=== PATIENT | male | born 1970 | race Caucasian/White ===

== ENCOUNTER 2024-01-20 00:17 | Emergency (ER) | payer OTHER, SELFPAY ==
--- NOTE | ~2024-01-20 | XR_ITS ---
EXAMINATION: XR TIBIA AND FIBULA, LEFT CLINICAL INFORMATION: Fall. Pain. COMPARISON: None available. TECHNIQUE: AP and lateral views of the left tibia and fibula were obtained. FINDINGS: The bone mineralization is normal. There is no fracture. There is lateral soft tissue swelling. XR/XR tibia fibula LT 2V IMPRESSION: Lateral soft tissue swelling. No fracture. Electronically signed by: Iftikhar Laguerre MD 01/20/2024 01:05 AM EDT
--- NOTE | ~2024-01-20 | CT_ITS ---
EXAMINATION: CT HEAD WITHOUT CONTRAST CT CERVICAL SPINE WITHOUT CONTRAST CLINICAL INFORMATION: Trauma. Pain. COMPARISON: None available. TECHNIQUE: Contiguous axial imaging was performed through the head and cervical spine without intravenous administration of contrast. Sagittal and coronal reformatted images also obtained. This CT examination was performed using dose optimization techniques as appropriate, variously including the following: *Automated exposure control *Adjustment of mA and/or kV according to patient size (this includes techniques or standardized protocols for targeted exams where dose is matched to indication/reason for exam; i.e. extremities or head) *Use of iterative reconstruction technique DLP: 1304 mGy-cm FINDINGS: The lateral, third and fourth ventricles are normally outlined. The cortical sulci and basal cisterns are normally outlined well. There is no acute territorial defect, hemorrhage or midline shift. The extra-axial spaces are unremarkable. Calvarium/scalp: Intact. Maxillofacial sinuses and mastoids: Clear as visualized. Cervical spine: There is straightening of the expected cervical spine curvature. There is mild diffuse cervical disc degenerative change with multilevel loss of disc space, endplate change and mild osteophyte formation greatest at C6-7 associated with mild diffuse facet osteoarthritic hypertrophic change with mild multilevel spinal canal and neuroforaminal narrowing moderate at C6-7 to the right. There is no fracture. The soft tissues are unremarkable. The visualized upper lung huerta are clear. CT/CT head/brain wo IV con IMPRESSION: HEAD: No acute intracranial abnormality. CERVICAL SPINE: 1. Straightening of expected cervical spine curvature. No acute fracture or dislocation. 2. Mild diffuse cervical disc degenerative change with mild multilevel spinal canal and neuroforaminal narrowing greatest at C6-7 to the right. Electronically signed by: Iftikhar Laguerre MD 01/20/2024 03:31 AM EDT
--- NOTE | ~2024-01-20 | CT_ITS ---
EXAMINATION: CT CHEST, ABDOMEN AND PELVIS WITH CONTRAST CLINICAL INFORMATION: Trauma. Pain. COMPARISON: None available. TECHNIQUE: Multidetector volumetric CT imaging of the chest, abdomen and pelvis was obtained after the administration of 80 mL of Omnipaque 350 intravenous contrast without immediate adverse reactions. Axial MIP volume rendering provided. Sagittal and coronal reformatted images were obtained. This CT examination was performed using dose optimization techniques as appropriate, variously including the following: *Automated exposure control *Adjustment of mA and/or kV according to patient size (this includes techniques or standardized protocols for targeted exams where dose is matched to indication/reason for exam; i.e. extremities or head) *Use of iterative reconstruction technique DLP: 1366 mGy-cm FINDINGS: COMPUTER NETWORK SPECIALIST: Unremarkable. LUNGS: There is minimal scarring and/or subsegmental atelectasis at the lung bases. The lungs are otherwise clear with no evidence of inflammation or nodules. MEDIASTINUM: The mediastinum is normal. PLEURA: There is no pleural effusion. No pleural mass or thickening. AXILLA: No lymphadenopathy. LIVER, GALLBLADDER, AND BILIARY TREE: The liver is normal in size, shape, and attenuation. No focal hepatic lesion or biliary ductal dilatation is present. The gallbladder is unremarkable with no evidence of radiopaque gallstones, gallbladder wall thickening, or obvious pericholecystic inflammatory changes. PANCREAS: Unremarkable. SPLEEN: Unremarkable. ADRENAL GLANDS: Unremarkable. KIDNEYS AND URETERS: The kidneys are normal in size, shape, and attenuation. There is no hydronephrosis. BLADDER: Unremarkable. GASTROINTESTINAL TRACT: The small and large bowel are unremarkable. The appendix is visualized and is normal in appearance. ABDOMINAL WALL: No significant hernia is appreciated. LYMPH NODES: Normal. VASCULAR: Unremarkable. PELVIC VISCERA: Unremarkable. OSSEOUS STRUCTURES: Unremarkable. CT/CT chest w IV con IMPRESSION: No evidence of acute traumatic injury within the chest, abdomen, or pelvis.Fleischner guidelines were followed. Electronically signed by: Iftikhar Laguerre MD 01/20/2024 04:00 AM EDT
--- NOTE | ~2024-01-20 | CT_ITS ---
EXAMINATION: CT CHEST, ABDOMEN AND PELVIS WITH CONTRAST CLINICAL INFORMATION: Trauma. Pain. COMPARISON: None available. TECHNIQUE: Multidetector volumetric CT imaging of the chest, abdomen and pelvis was obtained after the administration of 80 mL of Omnipaque 350 intravenous contrast without immediate adverse reactions. Axial MIP volume rendering provided. Sagittal and coronal reformatted images were obtained. This CT examination was performed using dose optimization techniques as appropriate, variously including the following: *Automated exposure control *Adjustment of mA and/or kV according to patient size (this includes techniques or standardized protocols for targeted exams where dose is matched to indication/reason for exam; i.e. extremities or head) *Use of iterative reconstruction technique DLP: 1366 mGy-cm FINDINGS: CEILING INSTALLER: Unremarkable. LUNGS: There is minimal scarring and/or subsegmental atelectasis at the lung bases. The lungs are otherwise clear with no evidence of inflammation or nodules. MEDIASTINUM: The mediastinum is normal. PLEURA: There is no pleural effusion. No pleural mass or thickening. AXILLA: No lymphadenopathy. LIVER, GALLBLADDER, AND BILIARY TREE: The liver is normal in size, shape, and attenuation. No focal hepatic lesion or biliary ductal dilatation is present. The gallbladder is unremarkable with no evidence of radiopaque gallstones, gallbladder wall thickening, or obvious pericholecystic inflammatory changes. PANCREAS: Unremarkable. SPLEEN: Unremarkable. ADRENAL GLANDS: Unremarkable. KIDNEYS AND URETERS: The kidneys are normal in size, shape, and attenuation. There is no hydronephrosis. BLADDER: Unremarkable. GASTROINTESTINAL TRACT: The small and large bowel are unremarkable. The appendix is visualized and is normal in appearance. ABDOMINAL WALL: No significant hernia is appreciated. LYMPH NODES: Normal. VASCULAR: Unremarkable. PELVIC VISCERA: Unremarkable. OSSEOUS STRUCTURES: Unremarkable. CT/CT abdomen pelvis w IV con IMPRESSION: No evidence of acute traumatic injury within the chest, abdomen, or pelvis.Fleischner guidelines were followed. Electronically signed by: Iftikhar Laguerre MD 01/20/2024 04:00 AM EDT
--- NOTE | ~2024-01-20 | XR_ITS ---
EXAMINATION: XR FEMUR, LEFT CLINICAL INFORMATION: Fall. Pain. COMPARISON: None available. TECHNIQUE: AP and lateral views of the left femur were obtained. FINDINGS: The bones and soft tissues are normal. No fracture. No osseous lesions. XR/XR femur LT 2V IMPRESSION: No significant abnormality identified. Electronically signed by: Iftikhar Laguerre MD 01/20/2024 01:12 AM EDT
--- NOTE | ~2024-01-20 | XR_ITS ---
EXAMINATION: XR SHOULDER, LEFT CLINICAL INFORMATION: Fall. Pain. COMPARISON: None available. TECHNIQUE: AP external rotation, Grashey, scapular Y, and axillary views of the left shoulder. FINDINGS: The bones and soft tissues are normal. No fracture. Glenohumeral and acromioclavicular alignment is anatomic with normal joint space. No abnormal soft tissue calcifications. XR/XR shoulder LT min 2V IMPRESSION: No significant abnormality identified. Electronically signed by: Iftikhar Laguerre MD 01/20/2024 01:10 AM EDT
--- NOTE | ~2024-01-20 | CT_ITS ---
EXAMINATION: CT HEAD WITHOUT CONTRAST CT CERVICAL SPINE WITHOUT CONTRAST CLINICAL INFORMATION: Trauma. Pain. COMPARISON: None available. TECHNIQUE: Contiguous axial imaging was performed through the head and cervical spine without intravenous administration of contrast. Sagittal and coronal reformatted images also obtained. This CT examination was performed using dose optimization techniques as appropriate, variously including the following: *Automated exposure control *Adjustment of mA and/or kV according to patient size (this includes techniques or standardized protocols for targeted exams where dose is matched to indication/reason for exam; i.e. extremities or head) *Use of iterative reconstruction technique DLP: 1304 mGy-cm FINDINGS: The lateral, third and fourth ventricles are normally outlined. The cortical sulci and basal cisterns are normally outlined well. There is no acute territorial defect, hemorrhage or midline shift. The extra-axial spaces are unremarkable. Calvarium/scalp: Intact. Maxillofacial sinuses and mastoids: Clear as visualized. Cervical spine: There is straightening of the expected cervical spine curvature. There is mild diffuse cervical disc degenerative change with multilevel loss of disc space, endplate change and mild osteophyte formation greatest at C6-7 associated with mild diffuse facet osteoarthritic hypertrophic change with mild multilevel spinal canal and neuroforaminal narrowing moderate at C6-7 to the right. There is no fracture. The soft tissues are unremarkable. The visualized upper lung huerta are clear. CT/CT cervical spine wo IV con IMPRESSION: HEAD: No acute intracranial abnormality. CERVICAL SPINE: 1. Straightening of expected cervical spine curvature. No acute fracture or dislocation. 2. Mild diffuse cervical disc degenerative change with mild multilevel spinal canal and neuroforaminal narrowing greatest at C6-7 to the right. Electronically signed by: Iftikhar Laguerre MD 01/20/2024 03:31 AM EDT
[2024-01-20 00:26] VITALS: BP 150/92; PULSE 68; RESP 18; TEMP 36.6; O2SAT 98; BMI 33.3
--- NOTE | 2024-01-20 00:37 | ED.FALL ---
HPI - Fall General Chief Complaint: Fall Stated Complaint: FALL LEFT LEG AND SHOULDER PAIN Time Seen by Provider: 01/20/24 00:31 Source: patient Mode of arrival: ambulatory Limitations: no limitations History of Present Illness ED Provider: DEBORAH HPI Narrative: 53 yo male with no PMH who fell 22feet from a tree stand while prepping for deer hunting season. He is not on blood thinners. He thinks he had a brief LOC. When he woke up he had pain in L shoulder, L calf and L thigh. He proceeded to drive 5 hours back from [place]. He has some neck pain, L calf and thigh pain. He has not vomited, he has no chest or abdominal pain. He is not confused. He can walk but it is painful. MD complaint: fall Onset (ago): hour(s) (12) Fall from: from height (distance) (22 feet) Fall witnessed: no (son was close by heard but didn't see the fall) Place fall occurred: other (outside) Loss of consciousness: yes, seconds Prolonged down time: no Symptoms prior to fall: none Context: tripped/slipped Location of injury: head Location of injury - extremities: left: shoulder, thigh and lower leg Severity: moderate Quality: dull and aching Associated symptoms (after fall): denies Related Data Previous Rx's ?Medication ?Instructions ?Recorded cyclobenzaprine 10 mg tablet 10 mg PO TID PRN muscle spasm #20 01/20/24 tabs lidocaine 5 % topical patch 1 patch topical DAILY #30 ea 01/20/24 morphine 15 mg immediate release 15 mg PO Q6H PRN pain #12 tabs 01/20/24 tablet Allergies Allergy/AdvReac Type Severity Reaction Status Date / Time No Known Allergies Allergy Verified 01/20/24 00:29 Review of Systems Review of Systems: Constitutional : No Fever, No Chills ENT/Mouth : No Ear Pain, No Hoarseness, No sore throat Eyes: No Eye Pain, No Swelling, No Redness, No Foreign Body Cardiovascular : No Chest Pain, No SOB Respiratory : No Cough, No Dyspnea Gastrointestinal : No Nausea, No Vomiting, No Diarrhea, No abdominal Pain Genitourinary : No Dysuria, No Hematuria Musculoskeletal : positive joint pain, pos Myalgias, pos Joint Swelling Skin : No Skin lacerations, No rash Neuro : No Weakness, No Numbness, pos Loss of Consciousness, No Dizziness, pos Headache Psych : No Anxiety/Panic, No Depression All other systems reviewed and are negative [facility] Past Medical History Attestation statement: The following information was validated with the patient. Medical History No pertinent past medical history Social History Social History (Updated 01/20/24 @ 00:42 by Gia Wright DO) Alcohol intake: former Patient Tobacco Use Status: Tobacco use Unknown Smoked in Last 30 Days: No Use of substances other than those prescribed or required for medical reasons: No Advance Directives: No Advance Directives Information Provided: Yes Do you have a plan to hurt others: No Plan Physical Exam Vital Signs: Vital Signs: Last Vital Signs Temp 98.7 F 01/20/24 03:46 Pulse 61 01/20/24 03:46 Resp 16 01/20/24 03:46 BP 117/73 01/20/24 03:46 Pulse Ox 96 01/20/24 03:46 O2 Del Method Room Air 01/20/24 03:46 BMI result Body Mass Index 33.3 Appearance: Alert. Oriented X3. No acute distress. Eyes: Pupils equal, round and reactive to light. ENT: Pharynx normal. atraumatic Neck: Normal inspection. Neck supple. CVS: Normal heart rate and rhythm. Pulses normal. Chest: no trauma Respiratory: No respiratory distress. Breath sounds normal. Abdomen: Soft and nontender. no trauma Skin: Skin warm and dry. Normal skin color. Normal skin turgor. Extremities: No lower extremity edema. L calf lateral hematoma noted compartments are soft and compressible distal NV intact, L thigh mild swelling compartments are soft and compressible Neuro: Oriented X 3. No motor deficit. No sensory deficit. Course Course Course Narrative: repeat compartment check on DC normal - pulses intact, SILT intact, compartments are soft and compressible Medications Administered Discontinued Medications Generic Name Dose Route Start Last Admin Trade Name Freq PRN Reason Stop Dose Admin Sodium Chloride 1,000 mls @ 999 mls/hr 01/20/24 00:38 01/20/24 02:15 Ns IV 01/20/24 01:38 Infused .Q1H1M ONE Infusion Iohexol 100 ml 01/20/24 01:57 01/20/24 01:57 Iohexol 350 Mg/Ml 100 Ml Infus..Btl IV 01/20/24 01:58 100 ml ONCE ONE Administration Morphine Sulfate 4 mg 01/20/24 00:38 01/20/24 01:01 Morphine Sulfate 4 Mg/Ml Cartridge IVPUSH 01/20/24 00:39 4 mg ONCE ONE Administration Protocol Ondansetron HCl 4 mg 01/20/24 00:38 01/20/24 01:01 Ondansetron Hcl 4 Mg/2 Ml Vial IVPUSH 01/20/24 00:39 4 mg ONCE ONE Administration Medical Decision Making Medical Decision Making MDM Narrative: 53 yo male with no sig PMH not on thinners here with c/o L shoulder and L thigh and femur pain post fall from 22 feet which was 12 hours ago at this time given mechanism will obtain xrays, CT scan of head/cspine/chest and abdomen. He is going to get xrays of L shoulder/LLE. He is NV intact, labs ordered along with IV morphine for pain. Differential Diagnosis Differential Diagnoses: The differential diagnosis associated with the presentation includes trauma - loera CT scan, hematoma, contusion Admission/Observation Consideration of admission/observation: Escalation of care including admission/observation considered labs and trauma imaging negative compartments soft and intact stable for DC Lab Data [facility] Lab Attestation statement: I reviewed the patient's lab results. 01/20/24 00:58 01/20/24 00:58 Labs: Lab Results 01/20/24 Range/Units 00:58 WBC 8.5 (4.8-10.8) X10*3/uL RBC 5.11 (4.60-5.80) X10*6/uL Hgb 14.6 (14.0-18.0) g/dl Hct 42.6 (42.0-52.0) % MCV 83.4 (80.0-98.0) fL MCH 28.6 (27.0-33.0) pg MCHC 34.3 (31.0-36.0) g/dl RDW 12.6 (11.0-16.0) % Plt Count 286 (160-400) X10*3/uL MPV 9.1 L (9.4-12.4) fL Immature Gran % (Auto) 0.2 (0.0-0.4) % Neut % (Auto) 50.4 (45-73) % Lymph % (Auto) 35.4 (20-40) % [place] % (Auto) 8.9 (2-11) % Eos % (Auto) 4.0 (0-4) % Baso % (Auto) 1.1 (0-2) % Lymph # (Auto) 3.0 (1.2-4.9) X10*3/uL [place] # (Auto) 0.8 (0.1-1.2) X10*3/uL Eos # (Auto) 0.3 (0.0-0.4) X10*3/uL Baso # (Auto) 0.1 (0.0-0.2) X10*3/uL Abs Immat Gran (auto) 0.02 (0.00-0.03) X10*3/uL Absolute Neuts (auto) 4.3 (2.0-8.3) x10*3/uL Absolute Nucleated RBC 0.000 (0.0-0.012) X10*3/uL Nucleated RBC % (auto) 0.0 (0.0-0.2) /100WBC Sodium 140 (135-145) mmol/L Potassium 3.9 (3.3-5.1) mmol/L Chloride 108 (96-108) mmol/L Carbon Dioxide 23 (22-29) mmol/L Anion Gap 13 (12-20) BUN 17 H (9-16) mg/dL Creatinine 0.79 (0.5-1.4) mg/dL Estim Creat Clear Calc 147.3 Estimated GFR > 60 Random Glucose 103 (60-115) mg/dL Calcium 9.4 (8.4-10.2) mg/dL Magnesium 1.9 (1.6-2.6) mg/dL Total Bilirubin 0.3 (0.0-1.0) mg/dL Direct Bilirubin 0.1 (0.0-0.5) mg/dL AST 17 (5-37) U/L ALT 21 (0-40) U/L Alkaline Phosphatase 87 (39-117) U/L Total Creatine Kinase 225 H (38-174) U/L Total Protein 7.0 (6.5-8.0) g/dL Albumin 4.2 (3.5-5.0) g/dL Independent Interpretation I performed an independent interpretation of an: Plain X-Ray (no trauma) and CT Scan (no trauma) Radiology Impression Discussion of test interpretation with radiology: I have reviewed the radiologist's reading. Prescription Management I considered prescription management with: Pain Medication Discharge Plan Discharge Clinical Impression: Hematoma of left lower leg Head injury Qualifiers: Encounter type: initial encounter Qualified Code(s): S09.90XA - Unspecified injury of head, initial encounter Contusion of left thigh Qualifiers: Encounter type: initial encounter Qualified Code(s): S70.12XA - Contusion of left thigh, initial encounter Patient Disposition: Home, Self-Care Instructions: Head Injury (ED), Contusion in Adults (ED), Hematoma (ED) Additional Instructions: no strenuous activity for 7 days return for confusion, vomiting, severe pain things to look out for in your left leg include severe swelling, numbness, severe pain - this could be a sign of elevated pressure in the leg, increased swelling could be a sign of a blood clot - seek immediate care if you notice this avoid aspirin for 2 weeks you are high risk for blood clot please monitor the swelling and size of your leg I would get US this week no later than if swelling persists get it sooner for concerning symptoms. xray of L shoulder, lower leg, femur no trauma CT scans of head, neck, chest/abdomen/pelvis - negative no trauma Prescriptions: New cyclobenzaprine 10 mg tablet 10 mg PO TID PRN (Reason: muscle spasm) Qty: 20 0RF lidocaine 5 % adhesive patch,medicated 1 patch topical DAILY Qty: 30 0RF Rx Instructions: leave on most painful area for up to 12 hrs morphine 15 mg tablet 15 mg PO Q6H PRN (Reason: pain) Qty: 12 0RF Rx Instructions: partial fill okay; Partial Fill upon patient request. Stand Alone Forms: Work/School Release Print Language: Haitian
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
--- OUTSIDE RECORDS SUMMARY | 2024-01-20 00:39 | XMS_ITS ---
Author Organization [facility] Address [address] [place] [address] Care Team Providers Care Pharmacist Assistant Name Role Phone CHAI ROACH Primary Care Provider [phone] SEBASTIAN BISHOP [phone] REASON FOR VISIT Follow-Up: Encounters Encounter Location Date Provider Diagnosis [facility] [address] [place] [address] 11/12/2022 SEBASTIAN BISHOP Plan Of Treatment No Information Progress Notes * Eamon BAREU PDOB:1970 (53 yo M)Acc No.[id number]:11/12/2022 Progress Notes Patient:?Eamon ABREU Provider:?Sebastian Bishop MD :1970???Age:52 Y???Sex:Male Nico e:11/12/2022 Address:[address] [place] [id number] Pcp:CHAI Leos Subjective: * Chief Complaints: * ???1. Follow-Up:. * Medical History:? Objective: * Vitals:? Assessment: Plan: * Treatment: * Billing Information: * Visit Code:? * Procedure Codes:? * Electronic signature of SPENCER BISHOP MD on 01/20/2024 at 12:39 AM EDT Sign off status: Pending * Provider:?Sebastian Bishop MD Date:?2022 Generated for Jose roman/Donta/Negroitting on:?01/20/2024 12:39 AM EDT
--- OUTSIDE RECORDS SUMMARY | 2024-01-20 00:39 | XMS_ITS ---
Author Organization [facility] Address [address] [place] [address] Care Team Providers Care Lieutenant Fire Fighter Name Role Phone CHAI ROACH Primary Care Provider REASON FOR VISIT 90 days script Medications Medication SIG (Take, Route, Fr equency, Duration) Notes Start Date End Date Status Furosemide 20 MG 1 tablet Orally Once a day for 90 days 10/05/2022 Active Encounters Encounter Location Date Provider Diagnosis [facility] [address] [facility] [place] [address] 11/10/2022 CHAI ROACH Plan Of Treatment Medication Medication Name Sig Start Date Stop Date Notes Furosemide 20 MG 1 tablet Orally Once a day for 90 days Progress Notes * Eamon CRAIN PDOB:1970 (52 yo M)Acc No.[id number]:11/10/2022 Patient:?Eamon Crain :1970???Age:52 Y???Sex:Male Address:[address] [place] [address], [phone] * Refills? Refill Furosemide Tablet, 20 MG, Orally, 90, 1 tablet, Once a day, 90 days, Refills=1 * true * Date:? Generated for Printi ng/Faxing/eTransmitting on:?01/20/2024 12:39 AM EDT
--- OUTSIDE RECORDS SUMMARY | 2024-01-20 00:39 | XMS_ITS | Continuity of Care Document ---
Author Organization [facility] Address [address] [place] [address]- Care Team Providers Care Clothes Presser Name Role Phone Zoe Black NP Primary Care Physician Encounter [facility] Date(s): 06/03/23 - 07/03/23 [facility] [address] [place] [address]- Allergies, Adverse Reactions, Alerts No Known Allergies Medications Cleocin HCl 300 mg oral capsule 1 capsule, By Mouth, Every 8 hours, # 15 capsule, 0 Refills Start Date: 11/01/08 Stop Date: 11/08/08 Status: Ordered levothyroxine 75 mcg (0.075 mg) oral tablet 1 tablet = 75 mcg, By Mouth, Daily, # 90 tablet, 1 Refills, Maintenance, 06/05/23 16:00:00 EST, Tablet, Partial fill upon patient request if the prescription is for a schedule II opioid drug. Start Date: 06/05/23 Stop Date: 12/02/23 Status: Ordered Zyrtec 10 mg oral tablet 1 tablet, By Mouth, Daily, # 30 tablet, 0 Refills Start Date: 10/30/08 Status: Ordered Patient Care team information Care Team Personnel Name: Zeo Black NP Position: [facility] Office Staff Member Role: PCP Address: Address: [address] [place] [address] [address] [place] [address]- [place] Care Team Related Persons Name: TIFFANIE ABREU Address: home [address] [place] [address]
--- OUTSIDE RECORDS SUMMARY | 2024-01-20 00:39 | XMS_ITS | Continuity of Care Document ---
Author Organization [facility] Address [address] [place] [address]- Care Team Providers Care Lithographing Machine Operator Name Role Phone Zoe Black NP Primary Care Physician [phone] Encounter [facility] Date(s): 06/20/23 - 07/20/23 [facility] [address] [place] [address]- Allergies, Adverse Reactions, Alerts No Known Allergies [...] Care team information Care Team Personnel Name: Zoe Black NP Position: [facility] Office Staff Member Role: PCP Address: Address: [address] [place] [address] [address] [place] [address]- Care Team Related Persons Name: TIFFANIE ABREU Address: home [address] [place] [address]
--- OUTSIDE RECORDS SUMMARY | 2024-01-20 00:40 | XMS_ITS | Patient Health Record ---
Author Organization [facility] Address [address] [place] [address] Care Team Providers Care Agile Scrum Master Name Role Phone CHAI ROACH Primary Care Provider Allergies No Known Allergies Reason For Referral No Information Medications Medication SIG (Take, Route, Frequency, Duration) Notes Start Date End Date Status Multivitamin Adult - as directed Orally Active Benzonatate 100 MG 1 capsule as needed Orally Three times a day Not-Taking traZODone HCl 50 MG 1 tablet at bedtime as needed Orally at bedtime for 90 days 08/22/2017 Not-Taking Fluticasone Propionate 50 MCG/ACT 1 spray in each nostril Nasally Once a day for 30 day(s) 08/30/2020 Active Testone CIK 200 MG/ML 1 ml Intramuscular Not-Taking Albuterol Sulfate HFA 108 (90 Base) MCG/ACT 2 puffs as needed Inhalation every 6 hrs for 30 days 01/23/2019 Active predniSONE 20 MG 1 tablet Orally Once a day for 7 days Not-Taking Advair Diskus 250-50 MCG/ACT INHALE ONE PUFF BY MOUTH TWICE A DAY (RINSE MOUTH AFTER USE) for 90 Active Lisinopril 20 MG TAKE ONE TABLET BY MOUTH EVERY DAY for 90 Active Atorvastatin Calcium 20 MG TAKE ONE TABLET BY MOUTH EVERY DAY for 90 Active Fluticasone Propionate 50 MCG/ACT 1 spray in each nostril Nasally Once a day for 30 day(s) 03/28/2017 Not-Taking Omeprazole 40 MG 1 capsule Orally Once a day for 90 days Active Loratadine 10 MG 1 tablet Orally Once a day for 30 day(s) Not-Taking Aspir-81 81 MG 1 tablet Orally Once a day for 90 Active Lisinopril 10 MG 1 tablet Orally Once a day for 90 days Not-Taking Claritin 10 MG 1 tablet Orally Once a day for 30 day(s) Active ProAir HFA 108 (90 Base) MCG/ACT 2 puffs as needed Inhalation Every 6 hours for 30 days INHALE 2 PUFFS EVERY 6 HOURS PRN 08/22/2010 Not-Taking Citalopram Hydrobromide 20 MG TAKE ONE TABLET BY MOUTH EVERY DAY for 30 NEEDS AN APPT Not-Taking Ibuprofen 800 MG TAKE ONE TABLET BY MOUTH THREE TIMES A DAY NEEDED (TAKE WITH FOOD OR MILK) for 30 Active Meclizine HCl 12.5 MG 2 tablets as neede d Orally three times a day for 14 days 03/21/2021 Not-Taking ProAir HFA 108 (90 Base) MCG/ACT INHALE TWO PUFFS BY MOUTH EVERY 6 HOURS NEEDED for 25 Active AndroGel Pump 20.25 MG/ACT (1.62%) 1 application to affected area Transdermal Once a day for 30 Not-Taking Furosemide 20 MG 1 tablet Orally Once a day for 90 days 10/05/2022 Active Levothyroxine Sodium 75 MCG TAKE ONE TABLET BY MOUTH EVERY MORNING ON AN EMPTY STOMACH for 60 Active Immunizations Vaccine Route Administration Date Status Comme nts Tdap Unknown 06/28/2010 Pending Td (adult) preservative free IM Intramuscular 06/28/2010 Administered Pneumococcal polysaccharide PPV23 Unknown 12/01/2014 Administered Influenza (split), 3 yrs and above Unknown 06/15/2019 Administered DTaP Unknown 06/28/2010 Administered Social History Tobacco Use: Social History Observation [...] Are you an other tobacco user? 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 Had done in 2019 and were effective. Last seen by [facility] and they wanted him to do PT. He will not go back to see them again. will try [facility] pain manage ment- has appt 03/2021 Urged wt loss. reviewed MRI report and given copy of report totake to appt. Problem 50652491 Hypertension (I10) Active confirmed bp- will come b y office to have taken . continue meds. weight loss, diana diet. Problem 44850379 Depression (F32.9) Active confirmed feels depressed. has work stress and working 120 hours plus a week. not sleeping enough and not using cpap, not taking testosterone, poor pain control. discussed need for him to participate in self care. begin with getting minimum of 6 hours uninterrupted sleep a night. Call for appt so can pursue testosterone therapy. This office will initial referral for sleep med so he can get cpap set up and refer to pain management to consider facet injections as helpful in past. cont SSRI reeval in 4 weeks 07/14/21 mood better and anxiety controlle with citalopram. will cont same dose. Problem 688329850 Seasonal allergies (J30.2) Active confirmed want to ware ve allergy testing. cont clarition, add fluticasone nasal spray Problem 31256789 Obstructive slee p apnea (G47.33) 1904 Active confirmed Using CPAP ordered by sleep med assoc. working well but needs pressure decreased as wakes him out of sleep during the night will call back Sleep Med. Problem 08031319 COPD (chronic obstructive pulmonary disease) (J44.9) Active confirmed is remainin g tobacco free. resume advair Proair prn has had covid 19 vaccine. Steroid today as tested positive for covid. Pulse ox qid. Problem 780622261 Esophageal reflu x (K21.9) Active confirmed sx controlled with meds and giving up ETOH No change in PPI Problem 497172584 Acquired hypothyroidism (E03.9) Active confirmed still concerned about weight and some daytime fatigue. will recheck tsh and cont levothyroxine. Problem 66508020 Eating disorder (F50.9) Active confirmed Cut down soda f or 5 months Lost weight down to 232 lbs but gained it over the holidays. Problem 63121196 Sleep apnea (G47.30) Active confirmed cont to snore a nd have witnessed apneas. Has had visit with sleep med and declined sleep study. Stressed need for sleep study so he can get new CPAP> agrees to call sleep med to schedule the sleep study. Problem 984058872 COPD exacerbatio n (J44.1) Active confirmed 08/28/21 started 3 weeks ago ongoing cough, congestion, sinus issues as well. at this point copd exacerbation. will send prednisone burst as well as Zpak. p educated to call if no improvement Problem 0622654 Ex-smoker (Z87.891) Active confirmed Quit successful ly Problem 1616118017600 Low testosterone (E29.1) Active confirmed sTaking testoserone1 mg IM every 2 weeks from testosterone level over 400 now Problem 26366370 Herniated lumbar disc without myelopathy (M51.26) Active confirmed does not want referral to new corrections cadet at this time as he has noit decided who he wants to see. Problem 508279415 Obesity (BMI 30-39.9) (E66.9) Active confirmed discussed p ortion size, lower fat food choices, limiting sweets. Problem 571412857 Alcohol dependence in remission (F10.21) Active confirmed reports sober since Apr 22, 2019 Problem 03485280 Dyspnea on exertion (R06.09) Active confirmed Started 6 months ago Getting worse Has othopnea. Father had CAD and has PCM and defibrillatorDied 3 yrs ago at age 72 yr. EKG done Normal Problem 647140116 Family history o f colon cancer (Z80.0) Active confirmed Had colonoscopy 2 times by Jim Cruz and once by Dr Rodríguez. 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 Does have alot of stress inlife and hx of panic attacks. May have contributed to sx. Stressed need for him to improve diet, limit fats and fried foods. Problem 848045222 Encounter for dietary counseling and surveillance (Z71.3) Active confirmed Problem Nondependent alcohol abuse in remission (692417488) Alcohol abuse, in remission (F10.11) Active confirmed Problem 804125078 Dyslipidemia (high LDL; low HDL) (E78.5) Active confirmed . Strong family hx of CAD. stressed need to continue to the medicatioin daily. Lower fat diet reviewed at length - has cut down on fried food. 20 min visit. Problem 234517463 Moderate asthma, unspecified whether complicated, unspecified whether persistent (J45.909) Active confirmed Saw Dr [place] has astma and COPD Gave him Advair and Albuterol Problem 951511165 Lumbar facet arthropathy (M47.816) Active confirmed Plan Of Treatment Pending Test Test Name Order Date Electrocardiogram (EKG) 07/07/2015 Hemoglobin A1c 06/28/2016 Urinalysis, Complete 06/28/2016 Urinalysis, Complete 05/26/2018 Testosterone, Serum 07/07/2015 TSH 07/07/2015 CBC With Differential/Platelet 6 Lipid Panel 07/07/2015 Lipid Panel 05/26/2018 Comp. Metabolic Panel (14) 07/07/2015 CBC 06/28/2016 Chem-Comprehensive 06/28/2016 CT Abdomen and Pelvis W/O CONTRAST 07/06 SPIROMETRY 05/10/2016 Pulmonary Function Test 07/07/2015 CBC WITH AUTO DIFF 10/03/2022 COMPREHENSIVE METABOLIC PANEL 10/03/2022 GLYCOHEMOGLOBIN PROFILE 10/03/2022 LIPID PROFILE 10/03/2022 CXR 08/15/2017 Future Test Test Name Order Date HgA1C 05/29/2019 BASIC METABOLIC PANEL (BMP) 07/14/2021 LIPID PROFILE 07/14/2021 TSH 07/14/2021 COMPREHENSIVE METABOLIC PANEL 01/01/2022 LIPID PANEL 01/01/2022 Insurance Providers Payer Name Payer Address Payer Phone Subscriber Number Group Number Insured Name Patient Relationship to Insured Coverage Start Date Coverage End Date [facility] Plan, In [address] [address] [place] [address] [id number] Eamon Zhao Self - patient is the insured Medical (General) History Medical History History ICD Code , Acute Laryngitis , Acute Pharyngitis Obesity Obstructive Sleep Apnea Had sleep study in Dec 2017 Dyspnea on Exertion Evaluate d by information officer with stress and echo in November 2017 Normal Hypertension Compliant with meds Control led GERD Takes omeprazole prn Better after h e cut down on his beer intake Hyperlipidemia Hx of Alcoholic Hepatitis Ware d MRI which showed liver enlarged Stopped drinking Apr 23 2019 Surgical History Surgery Date(Month/Year) Hand Surgery 10/07/2015 Hemorrhoidectomy 10/07/2015 Knee Arthroscopy 10/07/2015 Pilonidal Cyst Resection 10/07/[address] Chance 05/29/22
[2024-01-20 01:01] VITALS: RESP 18
[2024-01-20] MEDS: ondansetron HCL 4 MG/2 ML VIAL IVPUSH (01:01)
[2024-01-20] MEDS: 0.9 % Sodium Chloride 1,000 ML 999 ML IV (01:01)
[2024-01-20] MEDS: Morphine Sulfate 4 MG/ML CARTRIDGE IVPUSH (01:01)
[2024-01-20 01:05] LABS: Basophils Absolute Auto 0.1 X10*3/uL (0.0-0.2); Basophils Percent Auto 1.1 % (0-2); Eosinophils Absolute Auto 0.3 X10*3/uL (0.0-0.4); Hematocrit 42.6 % (42.0-52.0); Hemoglobin 14.6 g/dl (14.0-18.0); Imm Gran Abs Auto 0.02 X10*3/uL (0.00-0.03); Imm Gran Pct Auto 0.2 % (0.0-0.4); Lymphocytes Percent Auto 35.4 % (20-40); MANUAL DIFF FLAG NO; Mean Corpuscular HGB Conc 34.3 g/dl (31.0-36.0); Mean Corpuscular Hemoglobin 28.6 pg (27.0-33.0); Mean Corpuscular Volume 83.4 fL (80.0-98.0); Mean Platelet Volume 9.1 fL (9.4-12.4); Monocytes Absolute Auto 0.8 X10*3/uL (0.1-1.2); Monocytes Percent Auto 8.9 % (2-11); Neutrophils Absolute Auto 4.3 x10*3/uL (2.0-8.3); Neutrophils Percent Auto 50.4 % (45-73); Platelet Count 286 X10*3/uL (160-400); Red Blood Count 5.11 X10*6/uL (4.60-5.80); Red Cell Distribution Width 12.6 % (11.0-16.0); White Blood Count 8.5 X10*3/uL (4.8-10.8)
[2024-01-20 01:21] LABS: Alanine Aminotransferase 21 U/L (0-40); Albumin Level 4.2 g/dL (3.5-5.0); Alkaline Phosphatase 87 U/L (39-117); Anion Gap 13 (12-20); Aspartate Amino Transferase 17 U/L (5-37); Bilirubin Direct 0.1 mg/dL (0.0-0.5); Bilirubin Total 0.3 mg/dL (0.0-1.0); Blood Urea Nitrogen 17 mg/dL (9-16); Calcium 9.4 mg/dL (8.4-10.2); Carbon Dioxide 23 mmol/L (22-29); Chloride 108 mmol/L (96-108); Creatinine Clr Calc Pharmacy 147.3; Estimated Glomerular Filt Rate > 60; Glucose Random 103 mg/dL (60-115); Magnesium 1.9 mg/dL (1.6-2.6); Potassium 3.9 mmol/L (3.3-5.1); Sodium 140 mmol/L (135-145)
--- NOTE | 2024-01-20 01:23 | PC.NURSE ---
pt a&ox4, respirations even and unlabored. pt reporting fall from approx. 20 feet prior to arrival. pt reports he was [place] in [place] and climbing up to sit in his tree chair when it wasn't clipped and he fell backwards. pt reports LOC but is unsure his down time. per pt so, pt had left arm and left leg behind back. pt reports he drove himself here. at this time pt is unsure of head strike but denies thinners. reporting left leg pain and left shoulder pain. pt ambulatory with steady gait. 18G placed in left forearm, labs obtained and sent to lab. pt medicated per jun.
[2024-01-20] MEDS: iohexoL 350 MG/ML 100 ML INFUS..BTL IV (01:57)
[2024-01-20 03:46] VITALS: BP 117/73; PULSE 61; RESP 16; TEMP 37.1; O2SAT 96
[2024-01-20 04:47] VITALS: BP 117/73; PULSE 61; RESP 16; TEMP 37.1; O2SAT 96
== END 2024-01-20 04:47 | disposition home or self-care (01) ==
PROVIDERS: Emergency Provider Emergency Medicine
DX: S09.90XA Unspecified injury of head, initial encounter (principal); S80.12XA Contusion of left lower leg, initial encounter; W14.XXXA Fall from tree, initial encounter; Y93.79 Activity, other specified sports and athletics; Y92.821 Forest as the place of occurrence of the external cause; Y99.8 Other external cause status; Z79.899 Other long term (current) drug therapy
CPT/HCPCS: 36415; 70450; 71260; 72125; 73030; 73552; 73590; 74177; 80048; 80076; 82550; 83735; 85025; 96361; 96374; 96375; 99284; J2270; J2405; Q9967

== ENCOUNTER 2024-02-02 22:32 | Emergency (ER) | payer OTHER, SELFPAY ==
--- NOTE | ~2024-02-02 | XR_ITS ---
EXAMINATION: XR TIBIA AND FIBULA, RIGHT CLINICAL INFORMATION: Trauma. Pain. COMPARISON: None available. TECHNIQUE: AP and lateral views of the right tibia and fibula were obtained. FINDINGS: The bones and soft tissues are normal. No fracture. No osseous lesions. XR/XR tibia fibula RT 2V IMPRESSION: No acute osseous abnormality. Electronically signed by: Iftikhar Laguerre MD 02/02/2024 11:16 PM EDT
--- NOTE | ~2024-02-02 | XR_ITS ---
EXAMINATION: XR TIBIA AND FIBULA, LEFT CLINICAL INFORMATION: Trauma. Pain. COMPARISON: None available. TECHNIQUE: AP and lateral views of the left tibia and fibula were obtained. FINDINGS: The bones and soft tissues are normal. No fracture. No osseous lesions. XR/XR tibia fibula LT 2V IMPRESSION: No acute osseous abnormality. Electronically signed by: Iftikhar Laguerre MD 02/02/2024 11:29 PM EDT RP
[2024-02-02 22:36] VITALS: BP 124/76; PULSE 85; RESP 18; TEMP 36.2; O2SAT 97; BMI 30.8
--- NOTE | 2024-02-02 22:44 | PC.NURSE ---
Per Dr. Manan fall to defer head CT at this time due to no loss of consciousness.
--- OUTSIDE RECORDS SUMMARY | 2024-02-03 01:56 | XMS_ITS ---
Author Organization [facility] Address [address] [place] [address] Care Team Providers Care Marble Helper Name Role Phone CHAI ROACH Primary Care Provider SEBASTIAN BISHOP [phone] REASON FOR VISIT Follow-Up: Encounters Encounter Location Date Provider Diagnosis [facility] [address] [place] [address] 11/12/2022 SEBASTIAN BISHOP Plan Of Treatment No Information Progress Notes * Eamon ABREU PDOB:1970 (53 yo M)Acc No.[id number]:11/12/2022 Progress Notes Patient:?Eamon ABREU Provider:?Sebastian Bishop MD :1970???Age:52 Y???Sex:Male Nico e:11/12/2022 Address:[address] [id number] Pcp:CHAI Leos Subjective: * Chief Complaints: * ???1. Follow-Up:. * Medical History:? Objective: * Vitals:? Assessment: Plan: * Treatment: * Billing Information: * Visit Code:? * Procedure Codes:? * Electronic signature of SPENCER BISHOP MD on 02/03/2024 at 01:56 AM EDT Sign off status: Pending * Provider:?Sebastian Bishop MD Date:?2022 Generated for Jose roman/Donta/Negroitting on:?02/03/2024 01:56 AM EDT
--- OUTSIDE RECORDS SUMMARY | 2024-02-03 01:57 | XMS_ITS ---
Author Organization [facility] Address [address] [place] [address] Care Team Providers Care Regional Property Manager Name Role Phone CHAI ROACH Primary Care Provider [phone] REASON FOR VISIT 90 days script Medications Medication SIG (Take, Route, Fr equency, Duration) Notes Start Date End Date Status Furosemide 20 MG 1 tablet Orally Once a day for 90 days 10/05/2022 Active Encounters Encounter Location Date Provider Diagnosis [facility] [address] [facility] [place] [address] 11/10/2022 CHAI ROACH Plan Of Treatment Medication Medication Name Sig Start Date Stop Date Notes Furosemide 20 MG 1 tablet Orally Once a day for 90 days Progress Notes * Eamon CRAIN PDOB:1970 (52 yo M)Acc No.[id number]:11/10/2022 Patient:?Eamon Crain :1970???Age:52 Y???Sex:Male Address:[address] [place] [address], [address] * Refills? Refill Furosemide Tablet, 20 MG, Orally, 90, 1 tablet, Once a day, 90 days, Refills=1 * true * Date:? Generated for Printi ng/Faxing/eTransmitting on:?02/03/2024 01:56 AM EDT
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
--- OUTSIDE RECORDS SUMMARY | 2024-02-03 01:57 | XMS_ITS | Patient Health Record ---
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 Had done in 2019 and were effective. Last seen by [facility] and they wanted him to do PT. He will not go back to see them again. will try [facility] pain manage ment- has appt 03/2021 Urged wt loss. reviewed MRI report and given copy of report totake to appt. Problem 27558114 Hypertension (I10) Active confirmed bp- will come b y office to have taken . continue meds. weight loss, diana diet. Problem 65241931 Depression (F32.9) Active confirmed feels depressed. has [...] with citalopram. will cont same dose. Problem 409085654 Seasonal allergies (J30.2) Active confirmed want to ware ve allergy testing. cont clarition, add fluticasone nasal spray Problem 12484146 Obstructive slee p apnea (G47.33) 1904 Active confirmed Using CPAP ordered by sleep med assoc. working well but needs pressure decreased as wakes him out of sleep during the night will call back Sleep Med. Problem 61915009 COPD (chronic obstructive pulmonary disease) (J44.9) Active confirmed is remainin g tobacco free. resume advair Proair prn has had covid 19 vaccine. Steroid today as tested positive for covid. Pulse ox qid. Problem 070822622 Esophageal reflu x (K21.9) Active confirmed sx controlled with meds and giving up ETOH No change in PPI Problem 757538425 Acquired hypothyroidism (E03.9) Active confirmed still concerned about weight and some daytime fatigue. will recheck tsh and cont levothyroxine. Problem 85986175 Eating disorder (F50.9) Active confirmed Cut down soda f or 5 months Lost weight down to 232 lbs but gained it over the holidays. Problem 93346410 Sleep apnea (G47.30) Active confirmed cont to snore a nd have witnessed apneas. Has had visit with sleep med and declined sleep study. Stressed need for sleep study so he can get new CPAP> agrees to call sleep med to schedule the sleep study. Problem 686393050 COPD exacerbatio n (J44.1) Active confirmed 08/28/21 started 3 weeks ago ongoing cough, congestion, sinus issues as well. at this point copd exacerbation. will send prednisone burst as well as Zpak. p educated to call if no improvement Problem 7822523 Ex-smoker (Z87.891) Active confirmed Quit successful ly Problem 6344865943107 Low testosterone (E29.1) Active confirmed sTaking testoserone1 mg IM every 2 weeks from testosterone level over 400 now Problem 33783433 Herniated lumbar disc without myelopathy (M51.26) Active confirmed does not want referral to new keymodule assembly supervisor at this time as he has noit decided who he wants to see. Problem 468672753 Obesity (BMI 30-39.9) (E66.9) Active confirmed discussed p ortion size, lower fat food choices, limiting sweets. Problem 649384339 Alcohol dependence in remission (F10.21) Active confirmed reports sober since Apr 22, 2019 Problem 09722808 Dyspnea on exertion (R06.09) Active confirmed Started 6 months ago Getting worse Has othopnea. Father had CAD and has PCM and defibrillatorDied 3 yrs ago at age 72 yr. EKG done Normal Problem 795058020 Family history o f colon cancer (Z80.0) Active confirmed Had colonoscopy 2 times by Jim Cruz and once by Dr Rodríguez. 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 Does have alot of stress inlife and hx of panic attacks. May have contributed to sx. Stressed need for him to improve diet, limit fats and fried foods. Problem 153233726 Encounter for dietary counseling and surveillance (Z71.3) Active confirmed Problem Nondependent alcohol abuse in remission (831984871) Alcohol abuse, in remission (F10.11) Active confirmed Problem 430411799 Dyslipidemia (high LDL; low HDL) (E78.5) Active confirmed . Strong family hx of CAD. stressed need to continue to the medicatioin daily. Lower fat diet reviewed at length - has cut down on fried food. 20 min visit. Problem 686262246 Moderate asthma, unspecified whether complicated, unspecified whether persistent (J45.909) Active confirmed Saw Dr [place] has astma and COPD Gave him Advair and Albuterol Problem 120687217 Lumbar facet arthropathy (M47.816) Active confirmed Plan Of Treatment Pending Test Test Name Order Date Electrocardiogram (EKG) 07/07/2015 Hemoglobin A1c 06/28/2016 Urinalysis, Complete 06/28/2016 Urinalysis, Complete 05/26/2018 Testosterone, Serum 07/07/2015 TSH 07/07/2015 CBC With Differential/Platelet 6 Lipid Panel 05/26/2018 Lipid Panel 07/07/2015 Comp. Metabolic Panel (14) 07/07/2015 CBC 06/28/2016 [...] Insured Coverage Start Date Coverage End Date [employer], In [address] [address] [place] [address] [id number] Eamon Zhao Self - patient is the insured Medical (General) History Medical History History ICD Code , Acute Laryngitis , Acute Pharyngitis Obesity Obstructive Sleep Apnea Had sleep study in Dec 2017 Dyspnea on Exertion Evaluate d by biological lab technician with stress and echo in November 2017 [...]
[2024-02-03 02:50] VITALS: BP 110/79; PULSE 64; RESP 16; TEMP 36.8; O2SAT 95
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
[2024-02-03 04:24] VITALS: BP 118/76; PULSE 73; RESP 18; TEMP 36.9; O2SAT 93
[2024-02-03 05:08] VITALS: BP 118/76; PULSE 73; RESP 18; TEMP 36.9; O2SAT 93
== END 2024-02-03 05:10 | disposition home or self-care (01) ==
PROVIDERS: Emergency Provider Internal Medicine
DX: S80.11XA Contusion of right lower leg, initial encounter (principal); S89.92XA Unspecified injury of left lower leg, initial encounter; M79.605 Pain in left leg; Y29.XXXA Contact with blunt object, undetermined intent, initial encounter; M79.604 Pain in right leg; Y93.I9 Activity, other involving external motion; Y92.828 Other wilderness area as the place of occurrence of the external cause; Y99.8 Other external cause status
CPT/HCPCS: 73590; 99283

== ENCOUNTER 2024-02-16 00:29 | Emergency (ER) | payer OTHER, SELFPAY ==
--- NOTE | ~2024-02-16 | US_ITS ---
EXAMINATION: US TRIPLEX LOWER EXTREMITY, LEFT CLINICAL INFORMATION: Pain and swelling. COMPARISON: None available. TECHNIQUE: Color-flow triplex imaging with spectral analysis and compression Doppler were performed on the left lower extremity. FINDINGS: Respiratory variation, normal compression and augmented flow are noted throughout the left lower extremity. The visualized common femoral vein, superficial femoral vein, profunda femoral vein, popliteal vein and midcalf peroneal and posterior tibial venous segments show no evidence of deep venous thrombosis. There is no Ro's cyst. Images labeled left mid lower leg area of lump demonstrate an irregular shaped predominantly anechoic subcutaneous region with no measurable internal flow measuring 6.4 cm x 1.3 cm x 3.8 cm with minimal scattered internal septae. Within the left inguinal region. Incidental note is made of several lymph nodes with maximum short axis diameters less than 1 cm in diameter. These lymph nodes are normal in size and appearance. US/US venous duplex LE IMPRESSION: *No evidence of deep venous thrombosis within the left lower extremity. *Single 6.4 cm x 1.3 cm x 3.8 cm subcutaneous, mildly complex fluid collection at an area of self identified concern. This finding may represent a subcutaneous hematoma in the region of the left mid lower leg. Electronically signed by: Danny Boswell MD 02/16/2024 02:35 AM EDT
[2024-02-16 00:37] VITALS: BP 137/94; PULSE 81; RESP 18; TEMP 36.9; O2SAT 95; BMI 31.6
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
--- OUTSIDE RECORDS SUMMARY | 2024-02-16 00:52 | XMS_ITS | Patient Health Record ---
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 16 yrs ago Had MRI and showed disc herniation Left airline Saw Dr Go and had MRI and offered epidural injections. Had done in 2019 and were effective. Last seen by [facility] and they wanted him to do PT. He will not go back to see them again. will try [facility] pain manage ment- has appt 03/2021 Urged wt loss. reviewed MRI report and given copy of report totake to appt. Problem 74591518 Hypertension (I10) Active confirmed bp- will come b y office to have taken . continue meds. weight loss, diana diet. Problem 53741238 Depression (F32.9) Active confirmed feels depressed. has [...] with citalopram. will cont same dose. Problem 141281234 Seasonal allergies (J30.2) Active confirmed want to ware ve allergy testing. cont clarition, add fluticasone nasal spray Problem 42484494 Obstructive slee p apnea (G47.33) 1904 Active confirmed Using CPAP ordered by sleep med assoc. working well but needs pressure decreased as wakes him out of sleep during the night will call back Sleep Med. Problem 98964099 COPD (chronic obstructive pulmonary disease) (J44.9) Active confirmed is remainin g tobacco free. resume advair Proair prn has had covid 19 vaccine. Steroid today as tested positive for covid. Pulse ox qid. Problem 393903351 Esophageal reflu x (K21.9) Active confirmed sx controlled with meds and giving up ETOH No change in PPI Problem 532569097 Acquired hypothyroidism (E03.9) Active confirmed still concerned about weight and some daytime fatigue. will recheck tsh and cont levothyroxine. Problem 07840266 Eating disorder (F50.9) Active confirmed Cut down soda f or 5 months Lost weight down to 232 lbs but gained it over the holidays. Problem 11967736 Sleep apnea (G47.30) Active confirmed cont to snore a nd have witnessed apneas. Has had visit with sleep med and declined sleep study. Stressed need for sleep study so he can get new CPAP> agrees to call sleep med to schedule the sleep study. Problem 206865812 COPD exacerbatio n (J44.1) Active confirmed 08/28/21 started 3 weeks ago ongoing cough, congestion, sinus issues as well. at this point copd exacerbation. will send prednisone burst as well as Zpak. p educated to call if no improvement Problem 9811517 Ex-smoker (Z87.891) Active confirmed Quit successful ly Problem 9247562533136 Low testosterone (E29.1) Active confirmed sTaking testoserone1 mg IM every 2 weeks from testosterone level over 400 now Problem 97465854 Herniated lumbar disc without myelopathy (M51.26) Active confirmed does not want referral to new refinery process engineer at this time as he has noit decided who he wants to see. Problem 942779331 Obesity (BMI 30-39.9) (E66.9) Active confirmed discussed p ortion size, lower fat food choices, limiting sweets. Problem 099971455 Alcohol dependence in remission (F10.21) Active confirmed reports sober since Apr 22, 2019 Problem 57074966 Dyspnea on exertion (R06.09) Active confirmed Started 6 months ago Getting worse Has othopnea. Father had CAD and has PCM and defibrillatorDied 3 yrs ago at age 72 yr. EKG done Normal Problem 909437946 Family history o f colon cancer (Z80.0) Active confirmed Had colonoscopy 2 times by Jim Cruz and once by Dr Rodríguez. 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) Active confirmed Problem 75780434 Subacute frontal sinusitis (J01.10) Active confirmed will give Zpak Problem 503966840 Gastroesophageal reflux disease, esophagitis presence not specified (K21.9) Active confirmed Was on ome prazole for many years Stopped 2 months ago as gave article stating it causes mood swing Problem 782097070 Alcohol abuse counseling and surveillance (Z71.41) Active confirmed Problem 083567802 History of chest pain (Z87.898) Active confirmed Has stress te st in the past in [facility] Negative recent episode of pain eval in ED Has cardiology appt. Does have alot of stress inlife and hx of panic attacks. May have contributed to sx. Stressed need for him to improve diet, limit fats and fried foods. Problem 062903132 Encounter for dietary counseling and surveillance (Z71.3) Active confirmed Problem Nondependent alcohol abuse in remission (153746381) Alcohol abuse, in remission (F10.11) Active confirmed Problem 092446171 Dyslipidemia (high LDL; low HDL) (E78.5) Active confirmed . Strong family hx of CAD. stressed need to continue to the medicatioin daily. Lower fat diet reviewed at length - has cut down on fried food. 20 min visit. Problem 592807567 Moderate asthma, unspecified whether complicated, unspecified whether persistent (J45.909) Active confirmed Saw Dr [place] has astma and COPD Gave him Advair and Albuterol Problem 353190079 Lumbar facet arthropathy (M47.816) Active confirmed Plan [...] Insured Coverage Start Date Coverage End Date [facility] Plan, In [address] [address] [place] [address] [id number] Eamon Zhao Self - patient is the insured Medical (General) History Medical History History ICD Code , Acute Laryngitis , Acute Pharyngitis Obesity Obstructive Sleep Apnea Had sleep study in Dec 2017 Dyspnea on Exertion Evaluate d by junior network engineer with stress and echo in November 2017 [...]
--- OUTSIDE RECORDS SUMMARY | 2024-02-16 00:52 | XMS_ITS ---
Author Organization [facility] Address [address] [place] [address] Care Team Providers Care Casework Manager Name Role Phone CHAI ROACH Primary Care Provider SEBASTIAN BISHOP [phone] REASON FOR VISIT Follow-Up: Encounters Encounter Location Date Provider Diagnosis [facility] [address] [place] [address] 11/12/2022 SEBASTIAN BISHOP Plan Of Treatment No Information Progress Notes * Eamon ABREU PDOB:1970 (53 yo M)Acc No.[id number]:11/12/2022 Progress Notes Patient:?Eamon ABREU Provider:?Sebastian Bishop MD :1970???Age:52 Y???Sex:Male Nico e:11/12/2022 Address:[address] [place] [id number] Pcp:CHAI Leos Subjective: * Chief Complaints: * ???1. Follow-Up:. * Medical History:? Objective: * Vitals:? Assessment: Plan: * Treatment: * Billing Information: * Visit Code:? * Procedure Codes:? * Electronic signature of SPENCER BISHOP MD on 02/16/2024 at 12:51 AM EDT Sign off status: Pending * Provider:?Sebastian Bishop MD Date:?2022 Generated for Jose roman/Donta/Negroitting on:?02/16/2024 12:51 AM EDT
--- OUTSIDE RECORDS SUMMARY | 2024-02-16 00:52 | XMS_ITS ---
Author Organization [facility] Address [address] [place] [address] Care Team Providers Care Server Manager Name Role Phone CHAI ROACH Primary Care Provider REASON FOR VISIT 90 days script Medications Medication SIG (Take, Route, Fr equency, Duration) Notes Start Date End Date Status Furosemide 20 MG 1 tablet Orally Once a day for 90 days 10/05/2022 Active Encounters Encounter Location Date Provider Diagnosis [facility] [address] [place] [address] 11/10/2022 CHAI ROACH Plan Of Treatment Medication Medication Name Sig Start Date Stop Date Notes Furosemide 20 MG 1 tablet Orally Once a day for 90 days Progress Notes * Eamon CRAIN PDOB:1970 (52 yo M)Acc No.[id number]:11/10/2022 Patient:?Eamon Crain :1970???Age:52 Y???Sex:Male Address:[address] [place] [address], [address] * Refills? Refill Furosemide Tablet, 20 MG, Orally, 90, 1 tablet, Once a day, 90 days, Refills=1 * true * Date:? Generated for Printi ng/Faxing/eTransmitting on:?02/16/2024 12:51 AM EDT
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
[2024-02-16 02:15] VITALS: BP 125/86; PULSE 76; RESP 18; TEMP 37.2; O2SAT 97
[2024-02-16] MEDS: cephALEXin 500 MG CAPSULE PO (02:36)
[2024-02-16] MEDS: Doxycycline Monohydrate 100 MG CAPSULE PO (02:36)
[2024-02-16 02:49] VITALS: BP 125/86; PULSE 76; RESP 18; TEMP 37.2; O2SAT 97
== END 2024-02-16 02:50 | disposition home or self-care (01) ==
PROVIDERS: Emergency Provider Emergency Medicine
DX: S80.11XA Contusion of right lower leg, initial encounter (principal); R60.0 Localized edema; X58.XXXA Exposure to other specified factors, initial encounter; Y93.89 Activity, other specified; Y92.89 Other specified places as the place of occurrence of the external cause; Y99.8 Other external cause status
CPT/HCPCS: 93971; 99284

== ENCOUNTER → 2024-05-05 11:18 | Outpatient (BNVA) | payer SELFPAY | PROVIDERS: Visit Provider Physician Assistant Medical | DX: Z02.79 Encounter for issue of other medical certificate (principal) ==

== ENCOUNTER 2024-08-04 22:51 | Emergency (ER) | payer OTHER, SELFPAY ==
--- NOTE | ~2024-08-04 | US_ITS ---
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 No popliteal cyst. IMPRESSION: 1. Negative for left lower extremity deep vein thrombosis. This document has been electronically signed by: Blas Quintana MD, PHD on 08/05/2024 02:26:08
[2024-08-04 23:02] VITALS: BP 141/100; PULSE 77; RESP 18; TEMP 36.6; O2SAT 97; BMI 35.4
[2024-08-04 23:16] LABS: Basophils Absolute Auto 0.1 X10*3/uL (0.0-0.2); Basophils Percent Auto 0.8 % (0-2); Eosinophils Absolute Auto 0.4 X10*3/uL (0.0-0.4); Eosinophils Percent Auto 4.3 % (0-4); Hematocrit 41.8 % (42.0-52.0); Hemoglobin 14.6 g/dl (14.0-18.0); Imm Gran Abs Auto 0.06 X10*3/uL (0.00-0.03); Imm Gran Pct Auto 0.7 % (0.0-0.4); Lymphocytes Absolute Auto 3.3 X10*3/uL (1.2-4.9); Lymphocytes Percent Auto 36.9 % (20-40); MANUAL DIFF FLAG NO; Mean Corpuscular HGB Conc 34.9 g/dl (31.0-36.0); Mean Corpuscular Hemoglobin 28.5 pg (27.0-33.0); Mean Corpuscular Volume 81.5 fL (80.0-98.0); Mean Platelet Volume 9.2 fL (9.4-12.4); Monocytes Absolute Auto 0.7 X10*3/uL (0.1-1.2); Monocytes Percent Auto 7.4 % (2-11); Neutrophils Absolute Auto 4.4 x10*3/uL (2.0-8.3); Neutrophils Percent Auto 49.9 % (45-73); Platelet Count 264 X10*3/uL (160-400); Red Blood Count 5.13 X10*6/uL (4.60-5.80); White Blood Count 8.8 X10*3/uL (4.8-10.8)
[2024-08-04 23:30] LABS: Alanine Aminotransferase 60 U/L (0-40); Albumin Level 4.3 g/dL (3.5-5.0); Alkaline Phosphatase 89 U/L (39-117); Anion Gap 12 (12-20); Aspartate Amino Transferase 28 U/L (5-37); Bilirubin Total 0.7 mg/dL (0.0-1.0); Blood Urea Nitrogen 18 mg/dL (9-16); Calcium 9.4 mg/dL (8.4-10.2); Carbon Dioxide 23 mmol/L (22-29); Chloride 110 mmol/L (96-108); Creatinine Clr Calc Pharmacy 153.9; Estimated Glomerular Filt Rate > 60; Glucose Random 99 mg/dL (60-115); Lipase 45 U/L (8-78); Sodium 141 mmol/L (135-145); Total Protein 7.1 g/dL (6.5-8.0)
[2024-08-04 23:35] LABS: B Type Natriuretic Peptide < 10 pg/mL (<100)
[2024-08-04 23:38] LABS: Troponin-I High Sensitivity < 2.7 ng/L (<3.5-35.0)
--- NOTE | 2024-08-04 23:55 | PC.NURSE ---
Pt ambulatory to ED25 for treatment, assumed care of pt at this time. A&Ox3 skin pwd respirations even unlabored. Endorsing left thigh swelling and feeling like fluid is being pushed through a straw Denies pain. Reports intermittent SOB on exertion. Denies chest pain. 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 Denies hx DVT, denies thinners. Labs drawn in [place] awaiting primary provider eval, aware of plan of care.
--- NOTE | 2024-08-05 00:30 | ED.GENADULT ---
HPI - General Adult General Chief complaint: Extremity Problem Stated complaint: L leg swelling Time Seen by Provider: 08/05/24 00:30 History of Present Illness ED Provider: Espinoza KHAN narrative: The patient is a 53-year-old male says that he came to the emergency room because he feels that his left leg is swollen. He also feels that he gained 7 lb today. He says that this morning his weight was 270 lb. He says this evening his weight was 277 lb. He is worried he is retaining fluids with a something else might be going on. No definite acute chest pain or shortness of breath tonight. He says that sometimes he has chest pains but he can not put any definite pattern on his chest pains. He also says that sometimes he gets headaches but he can also put no pattern on his headaches. He has had no fever, sweats, chills. Related Data Previous Rx's ?Medication ?Instructions ?Recorded cyclobenzaprine 10 mg tablet 10 mg PO TID PRN muscle spasm #20 01/20/24 tabs lidocaine 5 % topical patch 1 patch topical DAILY #30 ea 01/20/24 morphine 15 mg immediate release 15 mg PO Q6H PRN pain #12 tabs 01/20/24 tablet ibuprofen 600 mg tablet 600 mg PO Q6H PRN fever or pain 02/03/24 #30 tabs cephalexin 500 mg capsule 500 mg PO QID 7 days #28 caps 02/16/24 doxycycline hyclate 100 mg capsule 100 mg PO BID 7 days #14 caps 02/16/24 Allergies Allergy/AdvReac Type Severity Reaction Status Date / Time No Known Allergies Allergy Verified 08/04/24 23:06 Review of Systems Review of Systems: Yes all other systems are reviewed and are negative [facility] Past Medical History Medical History (Updated 08/06/24 @ 00:01 by Jose Angel Mitchell) Asthma COPD (chronic obstructive pulmonary disease) No pertinent past medical history Social History Social History Alcohol intake: current Alcohol intake frequency: does not drink Patient Tobacco Use Status: Tobacco use Unknown Smoked in Last 30 Days: No Use of substances other than those prescribed or required for medical reasons: No Advance Directives: No Advance Directives Information Provided: Yes Do you have a plan to hurt others: No Plan Physical Exam ED Vital Signs: Vital Signs - 24 hr 08/04/24 23:02 Temperature 97.9 F Pulse Rate 77 Respiratory Rate 18 Blood Pressure 141/100 H Pulse Oximetry 97 Oxygen Delivery Method Room Air BMI result Body Mass Index 35.4 Const Other: The patient is awake and alert. He does not appear in obvious distress. Orientation/consciousness: patient oriented x3 HENMT Other: Face is symmetrical, mucous membranes moist Eyes General: appearance normal, both eyes and all related structures Conjunctivae: conjunctivae normal Pupils: Equal, round and reactive pupils present EOM: EOMs intact bilaterally Neck Neck: Yes normal visual inspection, Yes full ROM, Yes no lymphadenopathy and Yes no JVD Resp Effort & Inspection: normal respiratory effort Auscultation: clear to auscultation bilaterally Cardio Rate: regular rate Rhythm: regular rhythm Heart sounds: S1 normal heart sound present and S2 normal heart sound present GI Other: Abdomen is soft and nontender Skin General skin exam: no rashes or lesions noted Neuro General: patient oriented x3, gait normal, tone normal, moves all extremities, no focal motor deficits and CN's II-XI intact bilaterally Cranial nerves: Yes Equal, round and reactive pupils present Extrem Other: The patient reports a sense that his left leg is swollen. I do not appreciate any definite significant asymmetry in the legs at either the level of the thigh or the level of the calf. No definite edema of the feet. No marked tenderness. 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 I do not appreciate any definite swelling. He does not strike me as obviously acutely ill. He was mildly hypertensive at triage. CBC, basic metabolic panel, LFTs, troponin, and BNP are unremarkable. EKG is unremarkable. An ultrasound of his left leg shows no DVT. My overall impression is that the patient does not have any definite acute medical process at work. I think he may be discharged. He will be advised to increase his exertional activity. He will be advised to work on getting a primary care doctor. He should return if worse. Lab Data 08/04/24 23:11 08/04/24 23:11 Labs: Lab Results 08/04/24 Range/Units 23:11 WBC 8.8 (4.8-10.8) X10*3/uL RBC 5.13 (4.60-5.80) X10*6/uL Hgb 14.6 (14.0-18.0) g/dl Hct 41.8 L (42.0-52.0) % MCV 81.5 (80.0-98.0) fL MCH 28.5 (27.0-33.0) pg MCHC 34.9 (31.0-36.0) g/dl RDW 13.0 (11.0-16.0) % Plt Count 264 (160-400) X10*3/uL MPV 9.2 L (9.4-12.4) fL Immature Gran % (Auto) 0.7 H (0.0-0.4) % Neut % (Auto) 49.9 (45-73) % Lymph % (Auto) 36.9 (20-40) % Broome % (Auto) 7.4 (2-11) % Eos % (Auto) 4.3 H (0-4) % Baso % (Auto) 0.8 (0-2) % Lymph # (Auto) 3.3 (1.2-4.9) X10*3/uL [place]ome # (Auto) 0.7 (0.1-1.2) X10*3/uL Eos # (Auto) 0.4 (0.0-0.4) X10*3/uL Baso # (Auto) 0.1 (0.0-0.2) X10*3/uL Abs Immat Gran (auto) 0.06 H (0.00-0.03) X10*3/uL Absolute Neuts (auto) 4.4 (2.0-8.3) x10*3/uL Absolute Nucleated RBC 0.000 (0.0-0.012) X10*3/uL Nucleated RBC % (auto) 0.0 (0.0-0.2) /100WBC Sodium 141 (135-145) mmol/L Potassium 4.0 (3.3-5.1) mmol/L Chloride 110 H (96-108) mmol/L Carbon Dioxide 23 (22-29) mmol/L Anion Gap 12 (12-20) BUN 18 H (9-16) mg/dL Creatinine 0.78 (0.5-1.4) mg/dL Estim Creat Clear Calc 153.9 Estimated GFR > 60 Random Glucose 99 (60-115) mg/dL Calcium 9.4 (8.4-10.2) mg/dL Total Bilirubin 0.7 (0.0-1.0) mg/dL AST 28 (5-37) U/L ALT 60 H (0-40) U/L Alkaline Phosphatase 89 (39-117) U/L Troponin I High Sens < 2.7 (<3.5-35.0) ng/L B-Natriuretic Peptide < 10 (<100) pg/mL Total Protein 7.1 (6.5-8.0) g/dL Albumin 4.3 (3.5-5.0) g/dL Lipase 45 (8-78) U/L Discharge Plan Discharge Clinical Impression: Left leg pain, Weight gain Patient Disposition: Home, Self-Care Additional Instructions: Your testing in the emergency room today seems reassuring. There is no blood clot in your left leg. There is no sign of a heart attack or other acutely dangerous problem. No sign of heart failure. Please work on getting a regular primary care doctor. You has been given the contact information for some local primary care offices. I would recommend increasing your exercise activity. Do this gently. Return to the emergency room if you feel significantly worse. Prescriptions: No Action cyclobenzaprine 10 mg tablet 10 mg PO TID PRN (Reason: muscle spasm) Qty: 20 0RF lidocaine 5 % adhesive patch,medicated 1 patch topical DAILY Qty: 30 0RF Rx Instructions: leave on most painful area for up to 12 hrs morphine 15 mg tablet 15 mg PO Q6H PRN (Reason: pain) Qty: 12 0RF Rx Instructions: partial fill okay; Partial Fill upon patient request. ibuprofen 600 mg tablet 600 mg PO Q6H PRN (Reason: fever or pain) Qty: 30 0RF doxycycline hyclate 100 mg capsule 100 mg PO BID 7 Days Qty: 14 0RF cephalexin 500 mg capsule 500 mg PO QID 7 Days Qty: 28 0RF Referrals: [facility] [place] [facility], [place] [Provider Group] [facility] [facility], [place] [Provider Group] [facility] Primary Care, Earl Bajwa [Provider Group] Interventions: ED Discharge Assessment Last Done: 08/05/24 03:11 Discharge Date/Time: 08/05/24 03:12 Print Language: Mosotho
--- NOTE | 2024-08-05 00:41 | ECG_ITS ---
Test Reason : FATIGUE Blood Pressure : */* mmHG Vent. Rate : 72 BPM Atrial Rate : 72 BPM P-R Int : 166 ms QRS Dur : 100 ms QT Int : 386 ms P-R-T Axes : 42 64 53 degrees QTcB Int : 422 ms Normal sinus rhythm Normal ECG No previous ECGs available Referred By: Manan Doran Electronically Signed By: SACHIN PHILLIPS MD
--- OUTSIDE RECORDS SUMMARY | 2024-08-05 00:52 | XMS_ITS | Clinical Summary ---
Author Organization [facility] it Address [address] [place] [address] Care Team Providers Care Restaurant Team Member Name Role Phone Sebastian Bishop MD Primary Care Provider [phone] Medical History Medical History Date Comments Esophageal reflux DX:Esophageal reflux Unspecified essential hypertension DX:Unspecified essential hypertension Family History Medical History Relation Name Comments Blindness Neg Hx Cataracts Neg Hx Glaucoma Neg Hx Macular degeneration Neg Hx Strabismus Neg Hx Social History Tobacco Use Types Packs/Day Years Used Date Smoking Tobacco: Former Sex and Gender Information Value Date Recorded Sex Assigned at Not on file Legal Sex Male 8:30 PM EST Gender Identity Not on file Sexual Orientation Not on file Obstetrics History Plan of Treatment Health Maintenance Due Date Last Done Comments DTaP,Tdap,and Td Vaccines (1 - Tdap) 1989 Hepatitis B Vaccines (1 of 3 - 19+ 3-dose series) 1989 Pneumococcal Vaccine: 50+ Ye ars (1 of 1 - PCV) 2020 Zoster Vaccines (1 of 2) 2020 Cholesterol Screening (Lipid Panel) 03/30/2022 Colorectal Cancer Screening: Colonoscopy 03/30/2022 Depression Screening 03/30/2022 HIV Screening 03/30/2022 Hepatitis C Screening 03/30/2022 Social Influencers of Health Screening 03/30/2022 COVID-19 Vaccine ( - 2023-2 5 season) 2023 Influenza Vaccine (Season Ended) 2024 06/15/19 20 HIB Vaccines Aged Out No longer eligi ble based on patient's age to complete this topic HPV Vaccines Aged Out No longer eligi ble based on patient's age to complete this topic Hepatitis A Vaccines Aged Out No long er eligible based on patient's age to complete this topic IPV Vaccines Aged Out No longer eligi ble based on patient's age to complete this topic MMR Vaccines Aged Out No longer eligi ble based on patient's age to complete this topic Meningococcal ACWY Vaccine Aged Out N o longer eligible based on patient's age to complete this topic Meningococcal B Vaccine Aged Out No l onger eligible based on patient's age to complete this topic Pneumococcal Vaccine: Pediat rics (0 to 5 Years) and At-Risk Patients (6 to 64 Years) Aged Out No longer eligi ble based on patient's age to complete this topic RSV Immunization Patients Un vanesa 20 months Aged Out No longer eligible b ased on patient's age to complete this topic Varicella Vaccines Aged Out No longer eligible based on patient's age to complete this topic Care Teams Restaurant Team Member Relationship Specialty Start Date End Date Sebastian Bishop MD PCP - General 08/30/21
[2024-08-05 02:49] VITALS: BP 133/96; PULSE 75; RESP 18; TEMP 36.7; O2SAT 97
[2024-08-05 03:11] VITALS: BP 133/96; PULSE 75; RESP 18; TEMP 36.7; O2SAT 97
== END 2024-08-05 03:12 | disposition home or self-care (01) ==
PROVIDERS: Emergency Provider Emergency Medicine
DX: M79.605 Pain in left leg (principal); R63.5 Abnormal weight gain; Z68.35 Body mass index [BMI] 35.0-35.9, adult; J45.909 Unspecified asthma, uncomplicated
CPT/HCPCS: 36415; 80053; 83690; 83880; 84484; 85025; 93005; 93971; 99284

== ENCOUNTER → 2024-08-05 00:40 | Outpatient (BNV) | payer OTHER, SELFPAY | PROVIDERS: Emergency Provider Emergency Medicine; Visit Provider General Practice | DX: R22.42 Localized swelling, mass and lump, left lower limb (principal) | CPT/HCPCS: 93971 ==

== ENCOUNTER → 2024-08-05 00:41 | Outpatient (BNV) | payer OTHER, SELFPAY | PROVIDERS: Emergency Provider Emergency Medicine; Visit Provider Internal Medicine Cardiovascular Disease | DX: R53.83 Other fatigue (principal) | CPT/HCPCS: 93010 ==

== ENCOUNTER 2024-10-20 15:57 | Outpatient (AMB) | payer OTHER, SELFPAY ==
[2024-10-20 15:58] VITALS: BP 142/96; PULSE 84; TEMP 36.3; O2SAT 95; BMI 34.7
--- NOTE | 2024-10-20 15:58 | MHC.PC.OV ---
Vital Signs 10/20/24 15:58 Height 6 ft 2 in Weight 270 lb 8 oz BMI 34.7 BP 142/96 H Blood Pressure Location Lt brachial Position Sitting Pulse 84 Pulse Source Pulse Oximeter Temp 97.3 F Temp Source Temporal Artery Scan Pulse Oximetry (%) 95 Oxygen Delivery Method Room Air Intake Visit Reasons: establish care Allergies No Known Allergies Allergy (Verified 10/20/24 16:16) Medication List - Last Reconciled 10/20/24 by TASNEEM Joshua aspirin (Adult Aspirin Regimen) 81 mg PO DAILY loratadine (Claritin) 10 mg PO DAILY Tobacco use date assessed: 10/20/24 Dental Screening Dental Screen Date: 10/20/24 Did you have a dental visit in the last 12 months?: Yes Did you have a dental problem in the last 6 months where you did not have access to dental care?: No Was dental information given to patient?: Patient has dentist HPI establish care HPI Details Previous PCP: Dr. Adamson, used to be out of [place], now he is out of [place] Last visit: about 3 year Last PE: same Specialist: no OBGYN:n/a Past medical history: asthma, copd, fatty liver, GERD, KOSTA-unable to tolerate CPAP Medications: Family HX: father DM, -afib, pacemaker, s/p 2x AR in his late 50s. He was 72 when he . maternal grandmother had a leaky valve. Paternal Grandfather had a massive heart attack. Problem: The patient is a 53-year-old male presenting with hypertension and anxiety. The patient reports a history of hypertension, previously managed with lisinopril, which he discontinued some time ago. He has been monitoring his diet and exercise to manage his blood pressure, but recent readings have been elevated, with a noted blood pressure of 142/96 mmHg during the visit. He acknowledges the role of stress and caffeine in his blood pressure management and is considering lifestyle modifications to address these factors. The patient also reports experiencing anxiety, which he attributes to personal and familial stressors. He describes symptoms of anxiety, including racing thoughts and difficulty sleeping, particularly due to ongoing familial conflicts. He has not been on any medication for anxiety but is open to discussing therapeutic options. The patient has a history of asthma and COPD, for which he has not been using any regular medication recently. He experiences shortness of breath primarily during physical exertion and has a rescue inhaler for emergency use. He reports a diagnosis of sleep apnea, confirmed by a sleep study, and has attempted using a CPAP machine in the past. He has experienced weight fluctuations, losing 22 pounds recently through dietary changes and fasting. The patient mentions a history of fatty liver, which he is managing through dietary modifications. The patient reports that he has been following Chris Leung's method, who he reports is a human account services representative. He has been using [place] Gold Salt, he has been adding this to his water every morning. Reports that this has made him feel better mentally and energy chavez. Patient reports intermittent pitting edema in lower extremities. This landed him in the ER on 08/05/2024, and it was ruled out that it was not cardiac related. He also reports intermittent pressure in his chest with deep breath and dyspnea when he over exerts himself. He reports that he has had cardiac work up in the past in his stress test was normal. [facility] Medical History (Updated 10/21/24 @ 04:49 by TASNEEM Joshua) Heartburn HTN (hypertension) Asthma COPD (chronic obstructive pulmonary disease) No pertinent past medical history Surgical History H/O wisdom tooth extraction Family History (Updated 10/21/24 @ 04:40 by TASNEEM Joshua) Father Diabetes Hypertension Myocardial infarction Pacemaker Afib Maternal Grandmother Leaky heart valve Maternal Grandfather Myocardial infarction Social History Household Members: Spouse and Family Housing: House Alcohol intake: current Alcohol intake frequency: does not drink Patient Tobacco Use Status: Former Tobacco user e-Cigarette/Vaping Use: Never Used service: No Current occupational status: employed Current occupation: [employer] H[employer] Cognitive needs: No Hearing needs: No Vision needs: Yes Questionnaire PHQ-9 Over the last 2 weeks, how often have you been bothered by any of the following problems? 1. Little interest or pleasure in doing things: not at all 2. Feeling down, depressed, or hopeless: several days 3. Trouble falling or staying asleep, or sleeping too much: several days 4. Feeling tired or having little energy: several days 5. Poor appetite or overeating: several days 6. Feeling bad about yourself - or that you are a failure or have let yourself or your family down: not at all 7. Trouble concentrating on things, such as reading the newspaper or watching television: several days 8. Moving or speaking so slowly that other people could have noticed. Or the opposite - being so fidgety or restless that you have been moving around a lot more than usual: not at all 9. Thoughts that you would be better off or of hurting yourself in some way: not at all Total score: 5 Depression Screening Interpretation: Negative Depression Screening Done: Yes 57825 - PHQ-9 Billing: Yes Source: Developed by Drs. Mustapha Carlson, Susie Zhu, Gustavo Ace and colleagues, with an educational felipe from [employer]. Thrive Questionnaire Date Thrive assessed: 10/20/24 I am a: Patient What is your living situation today?: I have a steady place to live Within the past 12 months, did the food you bought not last and you didn't have the money to get more?: Never true Within the past 12 months, did you worry whether your food would run out before you got money to buy more?: Never true Do you have trouble paying for medicines?: No Do you have trouble getting transportation to medical appointments?: No Do you have trouble paying your heating and electricity bill?: No Do you have trouble taking care of your child, family member or friend?: No Do you have trouble with day-to-day activities such as bathing, preparing meals, shopping, managing finances, etc.?: No Are you currently unemployed and looking for a job?: No Are you interested in more education?: Yes Please select the resources that you would like help with: Education Currently or been in a relationship where the following occur: Controlled Emotionally THRIVE Score: 1 AUDIT C Alcohol Use Questionnaire (AUDIT-C) 1. How often do you have a drink containing alcohol?: Never 3. How often do you have six or more drinks on one occasion?: Never Total Score: 0 TANYA-7 AMB Questionnaire TANYA-7 Date TANYA - 7 assessed: 10/20/24 Feeling nervous, anxious, or on edge: 1 = Several days Not being able to stop or control worryin = Several days Worrying too much about different things: 1 = Several days Trouble relaxin = More than half the days Being so restless that it is hard to sit still: 2 = More than half the days Becoming easily annoyed or irritable: 0 = Not at all Feeling afraid as if something awful might happen: 1 = Several days Total TANYA-7 score (0-4 normal; 5-9 mild; 10-14 moderate; 15-21 severe): 8 Source: Developed by Drs. Mustapha Carlson, Susie Zhu, Gustavo Ace and colleagues, with an educational felipe from [employer]. TANYA-7 Assessment Billing TANYA-7 Assessment Tool: TANYA-7 Assessment 94358 Review of Systems Const Denies headache(s) Eyes Denies loss of vision ENT Denies vertigo, Denies dizziness, Denies headache(s) and Denies sore throat Card Denies chest pain, Reports pedal edema (lower extremities swell up intermittently), Denies leg edema, Denies lightheadedness, Reports dyspnea on exertion (overexertion attributed to weight) and Reports other (chest pressure with deep breath intermittently) Resp Denies cough, Denies hemoptysis, Reports dyspnea on exertion (overexertion attributed to weight) and Denies wheezing GI Denies abdominal pain, Denies melena, Denies constipation, Denies diarrhea and Denies vomiting Denies dysuria, Denies urinary frequency and Denies urinary urgency Musc Denies arthralgias, Denies joint swelling, Denies numbness and Denies tingling Neuro Denies Abnormal speech present, Denies behavioral changes, Denies vertigo, Denies dizziness, Denies headache(s), Denies loss of vision, Denies memory loss, Denies numbness and Denies tingling Psych Reports anxiety, Denies behavioral changes, Denies depression, Reports anhedonia, Denies memory loss, Denies panic attacks, Denies homicidal ideation and Denies suicidal ideation Henrique/Lymph Denies easy bleeding and Denies easy bruising Aller/Immun Denies wheezing Physical exam (Primary Care) Vital Signs: Last Vital Signs Temp 97.3 F 10/20/24 15:58 Pulse 84 10/20/24 15:58 BP 142/96 H 10/20/24 15:58 Pulse Ox 95 10/20/24 15:58 Oxygen Delivery Method Room Air 10/20/24 15:58 BMI result Body Mass Index 34.7 Tobacco/Smoking Status: Tobacco use Status Tobacco use date assessed 10/20/24 10/20/24 16:11 Patient Tobacco Use Status Former Tobacco user 10/20/24 16:11 e-Cigarette/Vaping Use Never Used 10/20/24 16:11 PHQ-9: PHQ-9 Score PHQ-9: Total score 5 10/20/24 17:20 Depression Screening Interpretation: Negative Thrive Assessment: Date of Thrive Assessment Date Thrive assessed 10/20/24 10/20/24 16:11 Currently or been in a relationship where the following occur: Controlled Emotionally Const General: healthy appearing, no acute distress, alert and awake Nutritional Appearance: well nourished Orientation/consciousness: oriented to person, oriented to place and oriented to time HENMT Ears: TM's normal bilaterally General nose exam: Normal nasal mucous membranes and turbinates present Eyes Conjunctivae: conjunctivae normal Sclerae: sclerae normal Pupils: Equal, round and reactive pupils present Neck Neck: Yes no lymphadenopathy and Yes no JVD Thyroid: Thyroid normal Carotids: no bruits Resp Effort & Inspection: normal respiratory effort and not tachypneic Auscultation: no crackles, no rales, no rhonchi and no wheezes Cardio Rate: regular rate Rhythm: regular rhythm Heart sounds: no murmurs and normal S1 and S2 GI Palpation (GI): Soft to palpation, nontender, no hepatomegaly and no splenomegaly Auscultation: normal bowel sounds Skin General skin exam: no rashes or lesions noted and dry skin Neuro General: oriented to person, oriented to place and oriented to time Cranial nerves: Yes Equal, round and reactive pupils present Speech: No Abnormal speech present Gait exam (Neuro): Normal gait present Motor exam (neuro): no tremor noted Extrem Right upper extremity: full ROM Left upper extremity: full ROM Right lower extremity: full ROM; no edema Left lower extremity: full ROM; no edema Psych Mental Status: mental status grossly normal Speech and movement: Normal speech and movement present Affect: normal affect Attitude: cooperative Thought process: Normal thought process present Coding Level of Care Code New Pt Level 4 (48437) Diagnoses Hypertension, unspecified type I10 Hypertension type: unspecified Anxiety F41.9 Asthma, unspecified asthma severity, unspecified whether complicated, unspecified whether persistent J45.909 Asthma severity: unspecified severity Asthma persistence: unspecified Asthma complication type: unspecified Chronic obstructive pulmonary disease, unspecified COPD type J44.9 COPD type: unspecified COPD Additional Codes TANYA-7 Assessment Billing - TANYA-7 Assessment Tool: TANYA-7 Assessment 82405 ([id number]) PHQ-9 - 36234 - PHQ-9 Billing: Yes ([id number]) Time Spent (min) 49 Assessment & Plan Assessment & Plan (1) HTN (hypertension): Code(s): I10 - Essential (primary) hypertension Category: Medical Qualifiers: Hypertension type: unspecified Qualified Code(s): I10 - Essential (primary) hypertension Plan: Patient reports a history of high blood pressure. Reports that he used to take lisinopril but stopped this a long time ago. He has been following Chris Leung's, who he describes as a human account services representative, recommendations to use [place] Salt to increase hydration in the body. He has been adding this salt in his water every morning. Explained to the patient that salt is a big contributor to high blood pressure, and the fact that he already has a blood pressure and a family history of heart disease, this method puts him at risk for increased blood pressure. 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 He has sleep apnea and isn't wearing his CPAP. Patient also reports that he has a lot of stress going on, family/relationship stressors that have had him on the edge lately. Blood pressure is 144/96 in office. Encouraged decreasing his salt intake, decreasing coffee intake, started hydrochlorothiazide 25 mg daily. We will have the patient return in 1 week for blood pressure check. (2) Anxiety: Code(s): F41.9 - Anxiety disorder, unspecified Category: Medical Plan: Patient reports family issues related to his son, who used to drive 1 of his trucks, then decided that he does not want to drive trucks anymore. Reports that this information was not relayed to him and he has been left paying for 2 trucks with his income cut in half. He reports that his knew about his son's plan and did not tell him. However, this started a downward spiral of their relationship. Reports that he needs to speak to someone, he has been anxious about the situation and is unable to clear his mind at times. Reports that this makes it difficult for him to sleep. Added, he reports that he is not sure if he is going to need to be placed on medications or if just talking to someone would help. Psychiatry referral placed. Hydroxyzine HCI 25 mg bid ordered (3) Asthma: Code(s): J45.909 - Unspecified asthma, uncomplicated Category: Medical Qualifiers: Asthma severity: unspecified severity Asthma persistence: unspecified Asthma complication type: unspecified Qualified Code(s): J45.909 - Unspecified asthma, uncomplicated Plan: History of asthma. Reports that he used to take Advair inhaler at a high dose. Then it was decreased to moderate dosed. However, the patient has stopped the medication altogether, and he reports that he does not get asthma symptoms frequently. However, he does reports of shortness of breath when he over exerts himself and chest pressure with deep breathing at times. Rescue inhaler ordered. We will continue to monitor, and consider restarting the patient on a LABA. (4) COPD (chronic obstructive pulmonary disease): Code(s): J44.9 - Chronic obstructive pulmonary disease, unspecified Category: Medical Qualifiers: COPD type: unspecified COPD Qualified Code(s): J44.9 - Chronic obstructive pulmonary disease, unspecified Plan: Similarly, the patient isn't taking any inhalers. Albuterol sulfate 90 mcg/actuation 2 puffs inh q.4 to 6H P.R.N. ordered Plan Patient to return in 1 week for blood pressure check. Then to return in 7 weeks for physical exam pre order labs to be completed prior to annual physical. Orders: Orders Complete Blood Count Auto Diff 10/20/24 Z00. - Encounter for general adult medical examination without abnormal findings Comprehensive Dixon. Panel Fast 10/20/24 Z. - Encounter for general adult medical examination without abnormal findings Vitamin D 25-OH Total 10/20/24 Z. - Encounter for general adult medical examination without abnormal findings B Type Natriuretic Peptide 10/20/24 Z. - Encounter for general adult medical examination without abnormal findings Lipid Panel 10/20/24 Z. - Encounter for general adult medical examination without abnormal findings TSH reflex Free T4 10/20/24 Z00.00 - Encounter for general adult medical examination without abnormal findings UA CC w/rflx Micro + Cult 10/20/24 Z. - Encounter for general adult medical examination without abnormal findings PSA,Total (Free>4and<10) 10/20/24 Z. - Encounter for general adult medical examination without abnormal findings Referrals Psychiatry Referral F41.9 - Anxiety disorder, unspecified Medications: New albuterol sulfate 90 mcg/actuation (Ventolin HFA) 2 puffs inhalation Q4-6H PRN 8.5 grams 3RF shortness of breath or wheezing hydrochlorothiazide 25 mg PO DAILY 30 tabs 3RF hydroxyzine HCl 25 mg PO BID PRN 60 tabs 0RF itching Discontinued cyclobenzaprine Discontinued Reason: Patient no longer taking 10 mg PO TID PRN 20 tabs 0RF muscle spasm lidocaine 5% leave on most painful area for up to 12 hrs Discontinued Reason: Patient no longer taking 1 patch topical DAILY 30 ea 0RF morphine partial fill okay; Partial Fill upon patient request. Discontinued Reason: Patient no longer taking 15 mg PO Q6H PRN 12 tabs 0RF pain ibuprofen Discontinued Reason: Patient no longer taking 600 mg PO Q6H PRN 30 tabs 0RF fever or pain cephalexin Discontinued Reason: Patient no longer taking 500 mg PO QID 7 days 28 caps 0RF doxycycline hyclate Discontinued Reason: Patient no longer taking 100 mg PO BID 7 days 14 caps 0RF
--- OUTSIDE RECORDS SUMMARY | 2024-10-20 16:23 | XMS_ITS | Clinical Summary ---
Author Organization [facility] Address [address] [place] [id number] Care Team Providers Care Early Childhood Services Coordinator Name Role Phone Pcp, No Primary Care Provider Unavailabl e Encounters Date Type Department Care Team Description 09/21/2024 Telephone [facility] [address] [place] [phone] Pcp, No from Last 3 Months Social History Tobacco Use Types Packs/Day Years Used Date Smoking Tobacco: Never Assessed Sex and Gender Information Value Date Recorded Sex Assigned at Male 09/21/2024 2:55 PM EDT Legal Sex Male 2:52 PM EDT Gender Identity Male 09/21/2024 2:55 PM EDT Sexual Orientation Heterosexual (straight) 09/21 2:55 PM EDT Plan of Treatment Upcoming Encounters Date Type Department Care Team (Late st Contact Info) Description 12/25/2024 10:30 AM EDT Office Visit [address] [place] [phone] Malia Triana PA-C [address] [place] [address] Health Maintenance Due Date Last Done Comments Hepatitis C Virus Screening 1970 HIV Screening 11/10/1983 DTaP/Tdap/Td Vaccines (1 - Tdap) 1989 Hepatitis B Vaccines (1 of 3 - 19+ 3-dose series) 10/21 Colonoscopy 11/10/2015 Pneumococcal Vaccines 50+ (1 of 1 - PCV) 2020 Zoster (Shingles) Vaccine (1 of 2) 2020 COVID-19 Vaccine (2023- season) 2023 Influenza Vaccine 11/20/2024 Insurance [facility] OUT STATE - PPO Care Teams Early Childhood Services Coordinator Relationship Specialty Start Date End Date Pcp, No PCP - General General Medicine 09/21/24
--- OUTSIDE RECORDS SUMMARY | 2024-10-20 16:23 | XMS_ITS | Clinical Summary ---
Author Organization [facility] Address [address] [place] [address] Care Team Providers Care Cinder Pit Worker Name Role Phone Sebastian Bishop MD Primary Care Provider [phone] Medical History Medical History Date Comments Esophageal [...] age to complete this topic Care Teams Cinder Pit Worker Relationship Specialty Start Date End Date Sebastian Bishop MD PCP - General 08/30/21
--- OUTSIDE RECORDS SUMMARY | 2024-10-20 16:23 | XMS_ITS | Clinical Summary ---
Author Organization [facility] Address [address] [place] [address] Care Team Providers Care Breaker Unit Assembler Name Role Phone Unavailable Primary Care Provider Unavailabl e Social History Tobacco Use Types Packs/Day Years Used Date Smoking Tobacco: Never Assessed Sex and Gender Information Value Date Recorded Sex Assigned at Not on file Gender Identity Not on file Sexual Orientation Not on file Job Start Date Occupation Industry Not on file Not on file Not on file Plan of Treatment Health Maintenance Due Date Last Done Comments Hepatitis B Vaccines (1 of 3 - 3-dose series) 1970 Hepatitis C Screening 1970 COVID-19 Vaccine (#1) 05/12/1971 Depression Screening 1982 Preventative Health Evaluation 1988 DTap / Tdap / Td (1 - Tdap) 1989 Colon Cancer Screening (Colonoscopy) 11/10/2015 Shingrix-Zoster Vaccine (1 of 2) 2020 Influenza Vaccine (Season Ended) 2024 Pneumococcal Vaccine Aged Out No long er eligible based on patient's age to complete this topic RSV Ped < 20 months Aged Out No longe r eligible based on patient's age to complete this topic
--- OUTSIDE RECORDS SUMMARY | 2024-10-20 16:23 | XMS_ITS ---
Author Name [facility] Organization Unknown Care Team Organization Name Specialty Phone Email Start Date End Da [facility] NO PCP Primary Care 09/23/2024
== END 2024-10-20 17:27 | disposition home or self-care (01) ==
LOC: HO.HMCH 15:57
DX: I10 Essential (primary) hypertension (principal); F41.9 Anxiety disorder, unspecified; J45.909 Unspecified asthma, uncomplicated; J44.9 Chronic obstructive pulmonary disease, unspecified

== ENCOUNTER → 2024-10-20 15:57 | Outpatient (BNVA) | payer OTHER, SELFPAY | DX: I10 Essential (primary) hypertension (principal); F41.9 Anxiety disorder, unspecified; J44.9 Chronic obstructive pulmonary disease, unspecified; G47.30 Sleep apnea, unspecified | CPT/HCPCS: 96127 ==

== ENCOUNTER 2024-10-22 09:36 | Outpatient (REF) | payer OTHER, SELFPAY ==
[2024-10-22 09:54] LABS: MANUAL DIFF FLAG NO
--- OUTSIDE RECORDS SUMMARY | 2024-10-22 09:59 | XMS_ITS | Clinical Summary ---
Author Organization [facility] Address [address] [place] [address] Care Team Providers Care Executive Vice President Name Role Phone Unavailable Primary Care Provider [...]
--- OUTSIDE RECORDS SUMMARY | 2024-10-22 09:59 | XMS_ITS | Clinical Summary ---
Author Organization [facility] Address [address] [place] [address] Care Team Providers Care Catering Sales Manager Name Role Phone Pcp, No Primary Care Provider Unavailabl e Encounters Date Type Department Care Team Description 09/21/2024 Telephone [facility] [address] [place] [phone] Pcp, No from Last 3 Months [...] Description 12/25/2024 10:30 AM EDT Office Visit [address] [place] [phone] Malia Triana PA-C [address] [place] [address] Health Maintenance Due Date Last Done Comments Hepatitis C Virus Screening 1970 HIV Screening 11/10/1983 DTaP/Tdap/Td Vaccines (1 - Tdap) 1989 Hepatitis B Vaccines (1 of 3 - 19+ 3-dose series) 10/21 Colonoscopy 11/10/2015 Pneumococcal Vaccines 50+ (1 of 1 - PCV) 2020 Zoster (Shingles) Vaccine (1 of 2) 2020 COVID-19 Vaccine (2023- season) 2023 Influenza Vaccine 11/20/2024 Insurance [facility] OUT STATE - PPO Care Teams Catering Sales Manager Relationship Specialty Start Date End Date Pcp, No PCP - General General Medicine 09/21/24
--- OUTSIDE RECORDS SUMMARY | 2024-10-22 09:59 | XMS_ITS | Clinical Summary ---
[facility] Address [address] [place] [address] Care Team Providers Care Petroleum Refining Firer Name Role Phone Sebastian Bishop MD Primary Care Provider [phone] Medical History Medical History Date Comments Esophageal [...] age to complete this topic Care Teams Petroleum Refining Firer Relationship Specialty Start Date End Date Sebastian Bishop MD PCP - General 08/30/21
[2024-10-22 10:40] LABS: Hematocrit 45.5 % (42.0-52.0); Hemoglobin 15.1 g/dl (14.0-18.0); Imm Gran Abs Auto 0.03 X10*3/uL (0.00-0.03); Imm Gran Pct Auto 0.4 % (0.0-0.4); Lymphocytes Absolute Auto 1.7 X10*3/uL (1.2-4.9); Mean Corpuscular HGB Conc 33.2 g/dl (31.0-36.0); Mean Corpuscular Hemoglobin 28.0 pg (27.0-33.0); Mean Corpuscular Volume 84.4 fL (80.0-98.0); NRBC Abs Auto 0.000 X10*3/uL (0.0-0.012); NRBC Pct Auto 0.0 /100WBC (0.0-0.2); Platelet Count 286 X10*3/uL (160-400); Red Blood Count 5.39 X10*6/uL (4.60-5.80); White Blood Count 6.7 X10*3/uL (4.8-10.8)
[2024-10-22 10:47] LABS: Appearance Urine Clear; Glucose Urine UA Negative (Negative); PH 5.5 (5.0-9.0); Specific Gravity - Urine >= 1.030 (1.005-1.025)
[2024-10-22 10:54] LABS: B Type Natriuretic Peptide 12 pg/mL (<100)
[2024-10-22 11:13] LABS: Alanine Aminotransferase 64 U/L (0-40); Albumin Level 4.6 g/dL (3.5-5.0); Alkaline Phosphatase 103 U/L (39-117); Anion Gap 11 (12-20); Aspartate Amino Transferase 31 U/L (5-37); Blood Urea Nitrogen 12 mg/dL (9-16); Calcium 8.9 mg/dL (8.4-10.2); Carbon Dioxide 26 mmol/L (22-29); Chloride 108 mmol/L (96-108); Cholesterol 220 mg/dL (<200); Estimated Glomerular Filt Rate > 60; HDL Cholesterol 41 mg/dL (>40); Potassium 4.1 mmol/L (3.3-5.1); Sodium 141 mmol/L (135-145); Total Protein 7.3 g/dL (6.5-8.0); Triglycerides 129 mg/dL (<150)
[2024-10-22 11:16] LABS: PSA,Total (Free>4and<10) 0.84 ng/mL (0.00-4.00)
== END 2024-10-22 09:37 | disposition home or self-care (01) ==
LOC: HO.LAB 09:36
DX: Z00.00 Encounter for general adult medical examination without abnormal findings (principal); Z12.5 Encounter for screening for malignant neoplasm of prostate; Z13.6 Encounter for screening for cardiovascular disorders
CPT/HCPCS: 36415; 80053; 80061; 81003; 82306; 83880; 84153; 84443; 85025

== ENCOUNTER → 2024-10-29 15:45 | Outpatient (BNVA) | payer OTHER, SELFPAY | DX: I10 Essential (primary) hypertension (principal) | CPT/HCPCS: 99211 ==

== ENCOUNTER 2024-12-15 16:28 | Outpatient (AMB) | payer OTHER, SELFPAY ==
[2024-12-15 16:36] VITALS: BP 130/86; PULSE 74; RESP 18; TEMP 36.3; O2SAT 93; BMI 35.2
--- NOTE | 2024-12-15 16:36 | A.OFFPC_ITS ---
Vital Signs 12/15/24 16:36 Height 6 ft 2 in Weight 274 lb BMI 35.2 BP 130/86 Blood Pressure Location Lt brachial Position Sitting Respiration 18 Pulse 74 Pulse Source Pulse Oximeter Temp 97.3 F Temp Source Temporal Artery Scan Pulse Oximetry (%) 93 Oxygen Delivery Method Room Air Intake Visit Reasons: annual exam Linen Room Supervisor Required: No Accompanied by: Self / Same As Patient Allergies No Known Allergies Allergy (Verified 12/15/24 17:15) Medication List - Last Reconciled 12/15/24 by TASNEEM Joshua albuterol sulfate 90 mcg/actuation (Ventolin HFA) 2 puffs inhalation Q4-6H PRN amlodipine 5 mg PO DAILY aspirin (Adult Aspirin Regimen) 81 mg PO DAILY atorvastatin (Lipitor) 10 mg PO BEDTIME hydrochlorothiazide 25 mg PO DAILY hydroxyzine HCl 25 mg PO BID PRN loratadine (Claritin) 10 mg PO DAILY Tobacco use date assessed: 12/15/24 Dental Screening Dental Screen Date: 12/15/24 Did you have a dental visit in the last 12 months?: Yes Did you have a dental problem in the last 6 months where you did not have access to dental care?: No Was dental information given to patient?: Patient has dentist HPI annual exam HPI Details Dentist: up to date Eye: little over a years Snellen: Right: Left: Corrected vision: glasses STI screening: Colonoscopy:Two years ago, [facility], they said he was good for 5 or 10 years will reevaluate this. Pap Smer:n/a PHQ-9: Flu:up to date COVID:x2 Tdap:reports that he is not sure when Diet:regular diet Exercise: The patient is a 54-year-old male presenting for a wellness visit and evaluation of laboratory results. The patient has a history of elevated liver enzymes, which were noted during the current visit to be slightly elevated but not concerningly high. Potential causes discussed include weight gain, medication use, and alcohol intake, although the patient reports minimal alcohol consumption and rare use of Tylenol. The patient was previously diagnosed with a fatty liver following an MRI conducted 5 to 7 years ago, which was associated with pain upon bending over. The patient has hyperlipidemia, with a total cholesterol level above the desired range due to elevated LDL cholesterol. The HDL cholesterol is within the acceptable range, providing some cardiac protection. The patient is advised to consider dietary changes and increased physical activity to manage cholesterol levels, with a follow-up planned in three months to reassess. The patient experiences stress-related cardiomyopathy, which was discussed in the context of its potential to mimic a heart attack without coronary artery obstruction. The patient acknowledges significant stress at home and is advised to manage stress to protect heart health. For preventative care, the patient underwent a colonoscopy approximately two years ago, which was clear, and the next screening is anticipated in 5 to 10 years. The patient reports ongoing back pain that he has been researching conservative treatments for. He mentioned a laser stimulation for the spine, company in [facility] Medical History Heartburn HTN (hypertension) Asthma COPD (chronic obstructive pulmonary disease) No pertinent past medical history Surgical History H/O wisdom tooth extraction Family History Father Diabetes Hypertension Myocardial infarction Pacemaker Afib Maternal Grandmother Leaky heart valve Maternal Grandfather Myocardial infarction Social History Household Members: Spouse and Family Housing: House Alcohol intake: current Alcohol intake frequency: does not drink Patient Tobacco Use Status: Former Tobacco user e-Cigarette/Vaping Use: Never Used service: No Current occupational status: employed 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 1. Little interest or pleasure in doing things: not at all 2. Feeling down, depressed, or hopeless: several days 3. Trouble falling or staying asleep, or sleeping too much: several days 4. Feeling tired or having little energy: several days 5. Poor appetite or overeating: several days 6. Feeling bad about yourself - or that you are a failure or have let yourself or your family down: not at all 7. Trouble concentrating on things, such as reading the newspaper or watching television: several days 8. Moving or speaking so slowly that other people could have noticed. Or the opposite - being so fidgety or restless that you have been moving around a lot more than usual: not at all 9. Thoughts that you would be better off or of hurting yourself in some way: not at all Total score: 5 Depression Screening Interpretation: Negative Depression Screening Done: Yes Source: Developed by Drs. Mustapha Carlson, Susie Zhu, Gustavo Ace and colleagues, with an educational felipe from [employer]. Thrive Questionnaire Date Thrive assessed: 12/15/24 I am a: Patient What is your living situation today?: I have a steady place to live Within the past 12 months, did the food you bought not last and you didn't have the money to get more?: Never true Within the past 12 months, did you worry whether your food would run out before you got money to buy more?: Never true Do you have trouble paying for medicines?: No Do you have trouble getting transportation to medical appointments?: No Do you have trouble paying your heating and electricity bill?: No Do you have trouble taking care of your child, family member or friend?: No Do you have trouble with day-to-day activities such as bathing, preparing meals, shopping, managing finances, etc.?: No Are you currently unemployed and looking for a job?: No Are you interested in more education?: Yes Please select the resources that you would like help with: Education Currently or been in a relationship where the following occur: Controlled Emotionally THRIVE Score: 1 AUDIT C Alcohol Use Questionnaire (AUDIT-C) 1. How often do you have a drink containing alcohol?: Never 3. How often do you have six or more drinks on one occasion?: Never Total Score: 0 TANYA-7 AMB Questionnaire TANYA-7 Date TANYA - 7 assessed: 12/15/24 Feeling nervous, anxious, or on edge: 1 = Several days Not being able to stop or control worryin = Several days Worrying too much about different things: 1 = Several days Trouble relaxin = More than half the days Being so restless that it is hard to sit still: 2 = More than half the days Becoming easily annoyed or irritable: 0 = Not at all Feeling afraid as if something awful might happen: 1 = Several days Total TANYA-7 score (0-4 normal; 5-9 mild; 10-14 moderate; 15-21 severe): 8 Source: Developed by Drs. Mustapha Carlson, Susie Zhu, Gustavo Ace and colleagues, with an educational felipe from [employer]. Review of Systems Const Denies headache(s) Eyes Denies loss of vision ENT Denies vertigo, Denies dizziness, Denies headache(s) and Denies sore throat Card Denies chest pain, Denies leg edema, Denies lightheadedness and Reports other (Extreme stress that he worries might affect his heart) Resp Denies cough, Denies hemoptysis and Denies wheezing GI Denies abdominal pain, Denies melena, Denies constipation, Denies diarrhea and Denies vomiting Denies dysuria, Denies urinary frequency and Denies urinary urgency Musc Reports back pain (Reports normal wear and tear-not looking for any interventions), Denies arthralgias, Denies joint swelling, Denies numbness and Denies tingling Neuro Denies Abnormal speech present, Denies behavioral changes, Denies vertigo, Denies dizziness, Denies headache(s), Denies loss of vision, Denies memory loss, Denies numbness and Denies tingling Psych Reports anxiety, Denies behavioral changes, Denies depression, Denies memory loss and Denies panic attacks Henrique/Lymph Denies easy bleeding and Denies easy bruising Aller/Immun Denies wheezing Physical exam (Primary Care) Vital Signs: Last Vital Signs Temp 97.3 F 12/15/24 16:36 Pulse 74 12/15/24 16:36 Resp 18 12/15/24 16:36 BP 130/86 12/15/24 16:36 Pulse Ox 93 12/15/24 16:36 Oxygen Delivery Method Room Air 12/15/24 16:36 BMI result Body Mass Index 35.2 Tobacco/Smoking Status: Tobacco use Status Tobacco use date assessed 12/15/24 12/15/24 16:44 Patient Tobacco Use Status Former Tobacco user 12/15/24 16:44 e-Cigarette/Vaping Use Never Used 12/15/24 16:44 PHQ-9: PHQ-9 Score PHQ-9: Total score 5 12/15/24 17:16 Depression Screening Interpretation: Negative Thrive Assessment: Date of Thrive Assessment Date Thrive assessed 12/15/24 12/15/24 16:44 Currently or been in a relationship where the following occur: Controlled Emotionally Const General: healthy appearing, no acute distress, alert and awake Nutritional Appearance: well nourished Orientation/consciousness: oriented to person, oriented to place and oriented to time HENMT Ears: TM's normal bilaterally General nose exam: Normal nasal mucous membranes and turbinates present Eyes Conjunctivae: conjunctivae normal Sclerae: sclerae normal Pupils: Equal, round and reactive pupils present Neck Neck: Yes no lymphadenopathy and Yes no JVD Thyroid: Thyroid normal Carotids: no bruits Resp Effort & Inspection: normal respiratory effort and not tachypneic Auscultation: no crackles, no rales, no rhonchi and no wheezes Cardio Rate: regular rate Rhythm: regular rhythm Heart sounds: no murmurs and normal S1 and S2 GI Palpation (GI): Soft to palpation, nontender, no hepatomegaly and no splenomegaly Auscultation: normal bowel sounds General: Yes no CVA tenderness Back/Spine/Pelvis Back: no CVA tenderness Thoracic/Lumbar Spine: No lumbar spinal tenderness Skin General skin exam: no rashes or lesions noted and dry skin Neuro General: oriented to person, oriented to place, oriented to time and CN's II-XI intact bilaterally Cranial nerves: Yes Equal, round and reactive pupils present Speech: No Abnormal speech present Gait exam (Neuro): Normal gait present Motor exam (neuro): no tremor noted Deep tendon reflexes (DTR's): Right triceps reflex intensity grade: 2+, Left triceps reflex intensity grade: 2+, Rt Biceps (C5, C6): 2+, Left biceps reflex intensity grade: 2+, Right brachioradialis reflex intensity grade: 2+, Left brachioradialis reflex intensity grade: 2+, Right patellar reflex intensity grade: 2+ and Left patellar reflex intensity grade: 2+ Extrem Right upper extremity: full ROM Left upper extremity: full ROM Right lower extremity: full ROM; no edema Left lower extremity: full ROM; no edema Psych Mental Status: mental status grossly normal Speech and movement: Normal speech and movement present Affect: normal affect Attitude: cooperative Thought process: Normal thought process present Results Reviewed Results Reviewed: Laboratory Tests 10/22/24 10/22/24 09:47 09:52 WBC 6.7 RBC 5.39 Hgb 15.1 Hct 45.5 MCV 84.4 MCH 28.0 MCHC 33.2 RDW 12.8 Plt Count 286 MPV 9.7 Sodium 141 Potassium 4.1 Chloride 108 Carbon Dioxide 26 Anion Gap 11 L BUN 12 Creatinine 0.71 Estimated GFR > 60 Fasting Glucose 99 Calcium 8.9 Total Bilirubin 0.5 AST 31 ALT 64 H Alkaline Phosphatase 103 B-Natriuretic Peptide 12 Total Protein 7.3 Albumin 4.6 Triglycerides 129 Cholesterol 220 H LDL Cholesterol, Calc 154 H HDL Cholesterol 41 Total PSA 0.84 25-OH Vitamin D Total 28.6 L TSH 1.63 Urine Color Yellow Urine Appearance Clear Urine pH 5.5 Ur Specific [place] >= 1.030 H Urine Protein Trace Urine Glucose (UA) Negative Urine Ketones Trace Urine Blood Negative Urine Nitrite Negative Ur Leukocyte Esterase Negative Coding Level of Care Code Est Pt Prev Care 40-64y(95208) Diagnoses Annual physical exam Z00.00 Hypertension, unspecified type I10 Hypertension type: unspecified Anxiety F41.9 Asthma, unspecified asthma severity, unspecified whether complicated, unspecified whether persistent J45.909 Asthma severity: unspecified severity Asthma persistence: unspecified Asthma complication type: unspecified Chronic obstructive pulmonary disease, unspecified COPD type J44.9 COPD type: unspecified COPD Hyperlipidemia, unspecified hyperlipidemia type E78.5 Hyperlipidemia type: unspecified Vitamin D deficiency E55.9 Sleep apnea, unspecified type G47.30 Sleep apnea type: unspecified type Liver enzyme elevation R74.8 Time Spent (min) 43 Assessment & Plan Assessment & Plan (1) Annual physical exam: Code(s): Z00.00 - Encounter for general adult medical examination without abnormal findings Category: Medical Plan: Patient is a 54-year-old male presenting for annual physical. Preventative guidelines and recent labs reviewed with the patient The patient underwent a colonoscopy two years ago, which was clear, and the next screening is anticipated in 5 to 10 years. (2) HTN (hypertension): Code(s): I10 - Essential (primary) hypertension Category: Medical Qualifiers: Hypertension type: unspecified Qualified Code(s): I10 - Essential (primary) hypertension Plan: Patient reports a history of high blood pressure. Reports that he used to take lisinopril but stopped this a long time ago. He has been following Chris Leung's, who he describes as a human attending radiologist, recommendations to use [place] Salt to increase hydration in the body. He has been adding this salt in his water every morning. Explained to the patient that salt is a big contributor to high blood pressure, and the fact that he already has a blood pressure and a family history of heart disease, this method puts him at risk for increased blood pressure. 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 He has sleep apnea and isn't wearing his CPAP. Patient also reports that he has a lot of stress going on, family/relationship stressors that have had him on the edge lately. Blood pressure is 144/96 in office. Enco uraged decreasing his salt intake, decreasing coffee intake, started hydrochlorothiazide 25 mg daily. Patient return in 1 week and his blood pressure continued to be elevated. Amlodipine 5 mg daily was added to the regimen. Patient in office today blood pressure is 130/86. Reinforced low-salt diet. Continue current regimen. Added, the patient is concerned about his heart health given his increased stress and family history. An cardiogram ordered to further evaluate his heart. (3) Anxiety: Code(s): F41.9 - Anxiety disorder, unspecified Category: Medical Plan: Patient reports family issues related to his son, who used to drive 1 of his trucks, then decided that he does not want to drive trucks anymore. Reports that this information was not relayed to him and he has been left paying for 2 trucks with his income cut in half. He reports that his knew about his son's plan and did not tell him. However, this started a downward spiral of their relationship. Reports that he needs to speak to someone, he has been anxious about the situation and is unable to clear his mind at times. Reports that this makes it difficult for him to sleep. Added, he reports that he is not sure if he is going to need to be placed on medications or if just talking to someone would help. Psychiatry referral placed. Hydroxyzine HCI 25 mg bid ordered (4) Asthma: Code(s): J45.909 - Unspecified asthma, uncomplicated Category: Medical Qualifiers: Asthma severity: unspecified severity Asthma persistence: unspecified Asthma complication type: unspecified Qualified Code(s): J45.909 - Unspecified asthma, uncomplicated Plan: History of asthma. Reports that he used to take Advair inhaler at a high dose. Then it was decreased to moderate dosed. However, the patient has stopped the medication altogether, and he reports that he does not get asthma symptoms frequently. However, he does reports of shortness of breath when he over exerts himself and chest pressure with deep breathing at times. Rescue inhaler ordered and LABA was restarted with positive effect. He denies sob in office today. (5) COPD (chronic obstructive pulmonary disease): Code(s): J44.9 - Chronic obstructive pulmonary disease, unspecified Category: Medical Qualifiers: COPD type: unspecified COPD Qualified Code(s): J44.9 - Chronic obstructive pulmonary disease, unspecified Plan: Continue LABA daily and rescue inhaler as needed (6) HLD (hyperlipidemia): Code(s): E78.5 - Hyperlipidemia, unspecified Category: Medical Qualifiers: Hyperlipidemia type: unspecified Qualified Code(s): E78.5 - Hyperlipidemia, unspecified Plan: The patient has hyperlipidemia, with elevated LDL cholesterol levels contributing to a total cholesterol level above the desired range. The HDL cholesterol is within the acceptable range, providing some cardiac protection. The patient is advised to implement dietary changes and increase physical activity, with a follow-up planned in three months to reassess cholesterol levels. (7) Vitamin D deficiency: Code(s): E55.9 - Vitamin D deficiency, unspecified Category: Medical Plan: Encouraged vitamin D3 OTC daily (8) Sleep apnea: Code(s): G47.30 - Sleep apnea, unspecified Category: Medical Qualifiers: Sleep apnea type: unspecified type Qualified Code(s): G47.30 - Sleep apnea, unspecified Plan: The patient has a history of sleep apnea and was unable to tolerate CPAP machine. Reports that he has lost weight and he is wondering if this has improved. We will order a home sleep study to further evaluate. (9) Liver enzyme elevation: Code(s): R74.8 - Abnormal levels of other serum enzymes Category: Medical Plan: The patient presents with slightly elevated liver enzymes, which are not significantly high to warrant immediate concern. Potential contributing factors include weight gain, medication use, and alcohol intake, although the patient reports minimal alcohol consumption and rare use of Tylenol. The patient has a history of fatty liver, diagnosed via MRI 5 to 7 years ago, and is advised to continue weight management efforts. Plan Patient to follow up in 3 months Orders: Orders Comprehensive [place]. Panel Fast 3 Months F41.9 - Anxiety disorder, unspecified, I10 - Essential (primary) hypertension, J45.909 - Unspecified asthma, uncomplicated, J44.9 - Chronic obstructive pulmonary disease, unspecified, E78.5 - Hyperlipidemia, unspecified, E55.9 - Vitamin D deficiency, unspecified UA CC w/rflx Micro + Cult 3 Months F41.9 - Anxiety disorder, unspecified, I10 - Essential (primary) hypertension, J45.909 - Unspecified asthma, uncomplicated, J44.9 - Chronic obstructive pulmonary disease, unspecified, E78.5 - Hyperlipidemia, unspecified, E55.9 - Vitamin D deficiency, unspecified Lipid Panel 3 Months F41.9 - Anxiety disorder, unspecified, I10 - Essential (primary) hypertension, J45.909 - Unspecified asthma, uncomplicated, J44.9 - Chronic obstructive pulmonary disease, unspecified, E78.5 - Hyperlipidemia, unspecified, E55.9 - Vitamin D deficiency, unspecified TSH reflex Free T4 3 Months F41.9 - Anxiety disorder, unspecified, I10 - Essential (primary) hypertension, J45.909 - Unspecified asthma, uncomplicated, J44.9 - Chronic obstructive pulmonary disease, unspecified, E78.5 - Hyperlipidemia, unspecified, E55.9 - Vitamin D deficiency, unspecified Vitamin D 25-OH Total 3 Months F41.9 - Anxiety disorder, unspecified, I10 - Essential (primary) hypertension, J45.909 - Unspecified asthma, uncomplicated, J44.9 - Chronic obstructive pulmonary disease, unspecified, E78.5 - Hyperlipidemia, unspecified, E55.9 - Vitamin D deficiency, unspecified CA echo transthoracic complete 12/15/24 I10 - Essential (primary) hypertension, E78.5 - Hyperlipidemia, unspecified, R06.09 - Other forms of dyspnea RT home sleep study 12/15/24 G47.30 - Sleep apnea, unspecified
--- OUTSIDE RECORDS SUMMARY | 2024-12-15 16:52 | XMS_ITS | Clinical Summary ---
Author Organization [facility] it Address [address] [place] [address] Care Team Providers Care Repossession Agent Name Role Phone Sebastian Bishop MD Primary Care Provider [phone] Medical History Medical History Date Comments Esophageal [...] Panel) 03/30/2022 Colorectal Cancer Screening: Colonoscopy 03/30/2022 HIV Screening 03/30/2022 Hepatitis C Screening 03/30/2022 Social Influencers of Health Screening 03/30/2022 COVID-19 Vaccine (1 - 2023-2 5 season) 2023 Depression Screening 04/22/2024 Influenza Vaccine (#1) 2024 06/15/2019 HIB Vaccines Aged Out No longer eligi [...] age to complete this topic Care Teams Repossession Agent Relationship Specialty Start Date End Date Sebastian Bishop MD PCP - General 08/30/21
--- OUTSIDE RECORDS SUMMARY | 2024-12-15 16:52 | XMS_ITS | Clinical Summary ---
Author Organization [facility] Address [address] [place] [address] Care Team Providers Care Edge Trimming Machine Operator Name Role Phone Unavailable Primary Care Provider [...] Vaccine (1 of 2) 2020 Influenza Vaccine (#1) 2024 Pneumococcal Vaccine Aged Out No long er eligible based on patient's age to complete this topic RSV Ped < 20 months Aged Out No longe r eligible based on patient's age to complete this topic
--- OUTSIDE RECORDS SUMMARY | 2024-12-15 16:52 | XMS_ITS | Clinical Summary ---
Author Organization [facility] Address [address] [place] [id number] Care Team Providers Care Tube Inspector Name Role Phone Pcp, No Primary Care Provider Unavailabl e Encounters Date Type Department Care Team Description 09/21/2024 Telephone [facility] [address] [place] [phone] Pcp, No from Last 3 Months [...] Description 12/25/2024 10:30 AM EDT Office Visit [address] [place] [phone] Malia Triana PA-C [address] [place] [address] Health Maintenance Due Date Last Done Comments Hepatitis C Virus Screening 1970 HIV Screening 11/10/1983 DTaP/Tdap/Td Vaccines (1 - Tdap) 1989 Hepatitis B Vaccines (1 of 3 - 19+ 3-dose series) 10/21 Colonoscopy 11/10/2015 Pneumococcal Vaccines 50+ (1 of 1 - PCV) 2020 Zoster (Shingles) Vaccine (1 of 2) 2020 COVID-19 Vaccine (2023- season) 2023 Influenza Vaccine 11/20/2024 Insurance [facility] - PPO Care Teams Tube Inspector Relationship Specialty Start Date End Date Pcp, No PCP - General General Medicine 09/21/24
== END 2024-12-15 17:41 | disposition home or self-care (01) ==
LOC: HO.HMCH 16:29
DX: Z00.00 Encounter for general adult medical examination without abnormal findings (principal); J44.9 Chronic obstructive pulmonary disease, unspecified; I10 Essential (primary) hypertension; F41.9 Anxiety disorder, unspecified; J45.909 Unspecified asthma, uncomplicated; E78.5 Hyperlipidemia, unspecified; E55.9 Vitamin D deficiency, unspecified; G47.30 Sleep apnea, unspecified; R74.8 Abnormal levels of other serum enzymes

== ENCOUNTER → 2025-02-15 14:59 | Outpatient (REF) | payer OTHER, SELFPAY ==
--- NOTE | 2025-02-15 15:01 | CA_ITS ---
Transthoracic Echocardiogram Patient (Last, First, Middle): Eamon Zhao P Gender: Male Date of : 1970 Age: 54 Procedure Date: 02/15/2025 Procedure Type: Transthoracic Echocardiogram Location: OP Height: 185.42 cm Weight: 117.94 kg BSA: 2.41 m2 Heart Rate: 78 bpm BP: 134 / 84 mmHg Special Agent Secret Service: SB Referring MD: Rajiv Lagos BILINGUAL OPERATOR-C Symptoms: I10 - Essential (primary) hypertension Study Quality: Adequate w contrast ECG Rhythm: Sinus Conclusions: - The left ventricular systolic function is normal. The calculated ejection fraction is 64% by biplane method. - No obvious valvular pathology seen on this study. - There is mild dilatation of the ascending aorta measuring 4.00 cm. Findings Procedure Information Contrast agent, definity, is being given per protocol without apparent complications. The quality of the study was technically difficult. The study quality is limited by patients body habitus. Left Ventricle Normal left ventricular cavity size. The left ventricular systolic function is normal. The calculated ejection fraction is 64% by biplane method. There is no evidence of regional wall motion abnormalities. Diastolic function is normal for age. There is mild septal asymmetric hypertrophy. Right Ventricle Normal right ventricular cavity size and systolic function. Atria Both atria are normal in size. Aortic Valve There is a normal trileaflet aortic valve. There is no aortic valve stenosis. There is no aortic valve regurgitation. Mitral Valve The mitral valve appears normal. There is no mitral valve regurgitation. There is no mitral valve stenosis. Pulmonic Valve The pulmonic valve is likely normal. Tricuspid Valve Normal tricuspid valve structure. There is trace tricuspid valve regurgitation. There is no evidence of pulmonary hypertension. Great Vessels The aortic arch is normal in size. There is mild dilatation of the ascending aorta measuring 4.00 cm. Venous The inferior vena cava is normal in size and collapses greater than 50% with inspiration. Pericardium/Pleural There is no evidence of pericardial effusion. Prior Study Comparison No prior study available for comparison. Recommendations, Care & Conclusions No obvious valvular pathology seen on this study. Measurements 2D Linear Measurements IVSd: 1.03 0.6-0.9/0.6-1.0 cm LVIDd: 4.61 3.9-5.3/4.2-5.9 cm LVIDd Index: 1.91 2.4-3.2/2.2-3.1 cm/m2 LVIDs: 3.50 2.0-3.6 cm LVPWd: 0.96 0.7-1.1 cm LA Diam: 3.90 2.7-3.8/3.0-4.0 cm LAIDs Index: 1.62 1.5-2.3 cm/m2 LV Mass: 196.83 67-162/88-224 g LV Mass Index: 81.67 43-95/49-115 g/m2 LVOT Diam: 2.40 3.0+(-)1.3 cm 2D Systolic Function EF 4C: 68.40 >55% EF 2C: 59.30 >55% EF BiP: 64.40 >55% Mitral Valve MV Pk E: 0.58 MV PK A: 0.58 MV Decel Time: 234.00 E/A: 1.00 E'Lateral: 10.10 E'Medial: 5.55 E/E' Med: 10.40 E/E' Lat: 5.70 PHT: 69.00 MVA PHT: 3.19 Decel Lamoure: 2.47 Aortic Valve AoV Pk Dmitri: 1.27 AoV Pk Grad: 6.00 AMERICA: 4.14 LVOT LVOT Pk Dmitri: 1.05 LVOT Mn Dmitri: 0.77 LVOT VTI: 0.20 LVOT Pk Grad: 4.00 LVOT Mn Grad: 3.00 LVOT Diam: 2.40 LVOT Area: 4.52 Diastolic Function MV Pk E: 0.58 MV Pk A: 0.58 E/A: 1.00 E'Medial: 5.55 E/E' Med: 10.40 E' Laterial: 10.10 E/E' Lat: 5.70 Right Ventricle TAPSE (mm): 21.90 TVS' Dmitri: 14.60 Tricuspid Valve TR Pk Dmitri: 2.26 TR Pk Grad: 20.00 RA Press: 8.00 RVSP: 28.00 Great Vessels Aorta Sinus of Valsalva: 3.50 2.0-3.5 cm Ao Asc: 4.00 2.1-3.4 cm Ao Arch: 3.60 Pulmonary Valve PV Pk Dmitri: 1.20 Peak PV Grad: 6.00 Updated in Other Vendor System with Status of Final Jevon Monet MD electronically signed on 02/16/2025 3:25:33 PM with status of Final
--- OUTSIDE RECORDS SUMMARY | 2025-02-15 18:24 | XMS_ITS | Clinical Summary ---
Author Organization [facility] Address [address] [place] [address] Care Team Providers Care Switchboard And Control Room Operator Name Role Phone Malia Triana PA-C Primary Care Provi vanesa Allergies No known active allergies Medications hydroCHLOROthiazi de (HYDRODIURIL) 25 MG tablet Take 1 tablet (25 mg total) by mouth. 12/23/2024 Active aspirin enteric coated 81 MG EC tablet Take 1 tablet (81 mg total) by mouth daily. Active atorvastatin (LIPITOR) 10 MG tablet Take 1 tablet (10 mg total) by mouth nightly. 10/22/2024 Active albuterol (PROAIR RESPICLICK) 108 (90 Base) MCG/ACT inhaler Inhale 1 puff 4 times daily (every 6 hours) as needed for wheezing. Active amLODIPine (NORVASC) 10 MG tabletIndications :Primary hypertension Take 1 tablet (10 mg total) by mouth daily. 90 tablet 1 12/25/2024 Active Active Problems Problem Noted Date Diagnosed Date Primary hypertension 12/25/2024 Assessment & Plan (12/25/2024 12:16 PM EDT): Patient has been compliant with amlodipine 5 mg daily as well as hydrochlorothiazide 25 mg daily. His blood pressure is not controlled. Increase the amlodipine to 10 mg daily and continuing the hydrochlorothiazide. He will check his blood pressures at home. Goal should be less than 130/80. Should he experience swelling of the lower extremities he will reach out. Will see him back in 3 months for his physical. COPD (chronic obstructive pulmonary disease) 08/2024 Assessment & Plan (12/25/2024 12:16 PM EDT): Was seeing pulmonary out of [facility]. He has an albuterol inhaler that he takes as needed. He feels his breathing is controlled. History of tobacco use 12/25/2024 Assessment & Plan (12/25/2024 12:16 PM EDT): Overdue for low-dose CAT scan screening. Orders placed. Patient has been going to [facility] in [place]. Orders: CT Chest Low Dose Cancer Annual Screening; Future Hyperlipidemia 12/25/2024 Assessment & Plan (12/25/2024 12:16 PM EDT): Compliant with Lipitor. Will check fasting lipid profile. Encounters Date Type Department Care Team Description 12/30/[address] [place] [address] Malia Triana PA-C 12/25/2024 10:30 AM EDT Office Visit [address] [place] [address] Malia Triana PA-C Encounter for medical examination to establish care (Primary Dx); Primary hypertension ; Morbid obesity (HCC); Chronic obstructive pulmonary disease, unspecified COPD type (HCC); History of tobacco use; Hyperlipidemia, unspecified hyperlipidemia type 12/25/2024 Travel from Last 3 Months Social History Tobacco Use Types Packs/Day Years Used Date Smoking Tobacco: Former Cigarettes Q uit: 2010 Smokeless Tobacco: Former Tobacco Cessation:Counseling Given: Not Answered Alcohol Use Standard Drinks/Week Comments Not Currently 0 (1 standard drink = 0.6 oz pur e alcohol) quit 7 years ago Social Connection and Isolation Panel Answer Date Recorded In a typical week, how many times do you talk on the phone with family, friends, or neighbors? More than three times a week 12/25/2024 Frequency of Social Gatherin gs with Friends and Family Not on file 12/25/2024 Attends Synagogue Services Not on file 12/25 Active Member of Clubs or Organizations Not on f ile 12/25/2024 Attends Club or Organization Meetings Not on lance e 12/25/2024 Marital Status Not on file 12/25/2024 AUDIT-C Answer Date Recorded Q1: How often do you have a drink containing alc ohol? Never 12/25/2024 Average Number of Drinks Not on file 025 Frequency of Binge Drinking Not on file 08/2024 PHQ-2 Answer Date Recorded PHQ-2 Total Score 4 12/25/2024 Hunger Vital Sign Answer Date Recorded Within the past 12 months, y ou worried that your food would run out before you got the money to buy more. Never true 12/26/19 25 Within the past 12 months, t he food you bought just didn't last and you didn't have money to get more. Never true 12/25/2024 PRAPARE - Transportation Answer Date Re corded In the past 12 months, has l ack of transportation kept you from medical appointments or from getting medications? No 08/2024 In the past 12 months, has l ack of transportation kept you from meetings, work, or from getting things needed for daily living? No 12/25/2024 Housing Stability Vital Sign Answer Nico e Recorded In the last 12 months, was t here a time when you were not able to pay the mortgage or rent on time? No 12/25/2024 In the past 12 months, how m any times have you moved where you were living? 0 12/25/2024 At any time in the past 12 m onths, were you homeless or living in a fdc (including now)? No 12/25/2024 Education Answer Date Recorded What is the highest level of school you have completed or the highest degree you have received? 12th grade 12/25/2024 Sex and Gender Information Value Date Recorded Sex Assigned at Male 09/21/2024 2:55 PM EDT Legal Sex Male 2:52 PM EDT Gender Identity Male 09/21/2024 2:55 PM EDT Sexual Orientation Heterosexual (straight) 09/21 2:55 PM EDT Last Filed Vital Signs Vital Sign Reading Time Taken Comments Blood Pressure 140/90 12/25/2024 12:15 PM EDT Pulse 88 12/25/2024 10:37 AM EDT Temperature 36.4 C (97.5 F) 12/25/2024 10:37 AM EDT Respiratory Rate 20 12/25/2024 10:37 AM EDT Oxygen Saturation 99% 12/25/2024 10:37 AM EDT Inhaled Oxygen Concentration - - Weight 124 kg (274 lb 3.2 oz) 12/25/2024 10:37 A M EDT Height 188 cm (6' 2 ) 12/25/2024 10:37 AM EDT Body Mass Index 35.21 12/25/2024 10:37 AM EDT Plan of Treatment Upcoming Encounters Date Type Department Care Team (Late st Contact Info) Description 04/28/2025 8:45 AM EST Office Visit [facility] [address] [place] [phone] Malia Triana PA-C [address] [place] [address] Health Maintenance Due Date Last Done Comments Hepatitis C Virus Screening 1970 HIV Screening 11/10/1983 Physical 1988 DTaP/Tdap/Td Vaccines (1 - Tdap) 1989 Hepatitis B Vaccines (1 of 3 - 19+ 3-dose series) 10/21 Pneumococcal Vaccines 50+ (1 of 2 - PCV) 1989 Colonoscopy 11/10/2015 RSV Vaccine 50 years and old er and Patients (1 - Risk 50-74 years 1-dose series) 2020 Zoster (Shingles) Vaccine (1 of 2) 2020 Influenza Vaccine 11/20/2024 COVID-19 Vaccine ( - season) 2024 Procedures Procedure Name Priority Date/Time Associated Diagnosis Comments URINALYSIS WITH MICROSCOPIC Routine 01/14/2025 Primary hypertension Morbid obesity (HCC) Encounter for medical examination to establish care TSH REFLEX TO FREE T4 Routine 01/14/2025 Primary hypertension Morbid obesity (HCC) Encounter for medical examination to establish care PSA Routine 01/14/2025 Primary hypertension Morbid obesity (HCC) Encounter for medical examination to establish care LIPID PANEL WITH NONHDL Routine 01/14/2025 Primary hypertension Morbid obesity (HCC) Encounter for medical examination to establish care COMPREHENSIVE METABOLIC PANEL Routine 01/14/2025 Primary hypertension Morbid obesity (HCC) Encounter for medical examination to establish care COMPLETE BLOOD COUNT, WITH DIFFERENTIAL Routine 01/14/2025 Primary hypertension Morbid obesity (HCC) Encounter for medical examination to establish care from Last 3 Months Results * TSH REFLEX FREE T4 (01/14/2025) TSH, Highly Sensitive 2.620 MIU/L [facility] Comment:LAB DOC Blood specimen / Unknown 01/14/2025 us Malia Triana PA-C LAB BLOOD ORDERABLE S Final Result [facility] * PSA (01/14/2025) Blood specimen / Unknown 01/14/2025 Narrative [facility] - 01/15/2025 12:15 PM EDT SCANNED us Malia Triana PA-C LAB BLOOD ORDERABLE S Final Result [facility] * Lipid panel with nonHDL (01/14/2025) Blood specimen / Unknown 01/14/2025 Narrative [facility] - 01/15/2025 12:15 PM EDT SCANNED us Malia Triana PA-C LAB BLOOD ORDERABLE S Final Result [facility] * Complete Blood Count, with Differential (01/14/2025) Blood specimen / Unknown 01/14/2025 Narrative [facility] - 01/15/2025 12:15 PM EDT SCANNED us Malia Jana Northbrook-Levy PA-C LAB BLOOD ORDERABLE S Final Result Performing Organization Address City/[facility]/ZIP Co de Phone Number [facility] * Urinalysis with Microscopic (01/14/2025) Urine Urine specimen / Unknown 01/14/2025 us Malia Triana PA-C URINE ORDERABLES Fi nal Result Performing Organization Address City/[facility]/ZIP Co de Phone Number [facility] * Comprehensive Metabolic Panel (01/14/2025) Blood specimen / Unknown 01/14/2025 Narrative [facility] - 01/15/2025 12:15 PM EDT SCANNED us Malia Triana PA-C LAB BLOOD ORDERABLE S Final Result Performing Organization Address [facility] Co de Phone Number [facility] from Last 3 Months Insurance [facility] PPO Care Teams Switchboard And Control Room Operator Relationship Specialty Start Date End Date Mlaia Triana PA-C [address] [place] [address] PCP - General Internal Medicine 12/25/24
--- OUTSIDE RECORDS SUMMARY | 2025-02-15 18:24 | XMS_ITS | Encounter Summary ---
Author Organization [facility] Address [address] [place] [address] Care Team Providers Care Overedge Machine Operator Name Role Phone Malia Triana PA-C Primary Care Provi vanesa Encounter Details Date Type Department Care Team (Late st Contact Info) Description 12/30/[address] [phone] Malia Triana PA-C [address] [place] [address] Social History Tobacco Use Types Packs/Day Years Used Date Smoking Tobacco: Former Cigarettes Q uit: 2010 Smokeless Tobacco: Former Alcohol Use Standard Drinks/Week Comments Not Currently [...] and Family Not on file 12/25/2024 Attends Christianity Services Not on file 12/25 Active Member [...] any time in the past 12 m [facility], were you homeless or living in a alf (including now)? No 12/25/2024 Education Answer Date [...] Orientation Heterosexual (straight) 09/21 2:55 PM EDT documented as of this encounter Miscellaneous Notes * Telephone Encounter - Albania Coleman MA - 01/04/2025 12:49 PM EDT Re faxed orders to [facility] [phone]. * Telephone Encounter - Ashly Aguirre - 01/04/2025 11:19 AM EDT One of the questions was not answered * Telephone Encounter - Gail Hamilton - 12/31/2024 2:27 PM EDT Sharon calling in from [facility] looking for below to be sent * Telephone Encounter - Mary Pettit MA - 12/30/2024 10:39 AM EDT [facility] called about CT chest low dose. In order to do test lung screening past history question needs to be checked yes. They cannot do exam without this. Please advise documented in this encounter Plan of Treatment Upcoming Encounters Date Type Department Care Team (Late st Contact Info) Description 04/28/2025 8:45 AM EST Office Visit [facility] [address] [facility] [address] [place] [address] Malia Triana PA-C [address] [place] [address] documented as of this encounter Visit Diagnoses Not on filedocumented in this encounter Care Teams Overedge Machine Operator Relationship Specialty Start Date End Date Malia Triana PA-C [address] [place] [address] PCP - General Internal Medicine 12/25/24 documented as of this encounter
--- OUTSIDE RECORDS SUMMARY | 2025-02-15 18:24 | XMS_ITS | Clinical Summary ---
Author Organization [facility] Address [address] [place] [address] Phone Care Team Providers Care Employment Recruiter Name Role Phone DemondRajiv Silva LOCKE Primary Care Provider [phone] Medical History Medical History Date Comments Esophageal [...] Health Maintenance Due Date Last Done Comments Colorectal Cancer Screening: Colonoscopy 1970 DTaP,Tdap,and Td Vaccines (1 - Tdap) 1989 Hepatitis B Vaccines (1 of 3 - 19+ 3-dose series) 1989 Pneumococcal Vaccine: 50+ Ye ars (1 of 2 - PCV) 1989 RSV Immunization Adult Patie nts (1 - Risk 50-74 years 1-dose series) 2020 Zoster Vaccines (1 of 2) 2020 Cholesterol Screening (Lipid Panel) 03/30/2022 HIV Screening 03/30/2022 Hepatitis C Screening 03/30/2022 Social Influencers of Health Screening 03/30/2022 Depression Screening 04/22/2024 COVID-19 Vaccine (1 - 2023-2 5 season) 2024 Influenza Vaccine (#1) 2024 06/15/2019 HIB Vaccines [...] on patient's age to complete this topic Insurance [employer] [place] [address] Care Teams Employment Recruiter Relationship Specialty Start Date End Date Rajiv Lagos FNP [address] [place] [address] PCP - General Family Medicine 01/04/25
--- OUTSIDE RECORDS SUMMARY | 2025-02-15 18:24 | XMS_ITS | Clinical Summary ---
Author Organization [facility] Address [address] [place] [address] Care Team Providers Care Elementary Special Education Teacher Name Role Phone Unavailable Primary Care Provider [...]
== END ==
LOC: HO.CARD 14:59
DX: I10 Essential (primary) hypertension (principal); E78.5 Hyperlipidemia, unspecified; R06.09 Other forms of dyspnea
CPT/HCPCS: 93306; Q9957

== ENCOUNTER → 2025-02-15 15:01 | Outpatient (BNV) | payer OTHER, SELFPAY | PROVIDERS: Visit Provider Internal Medicine | DX: I42.2 Other hypertrophic cardiomyopathy (principal); I71.21 Aneurysm of the ascending aorta, without rupture | CPT/HCPCS: 93306 ==

== ENCOUNTER 2025-04-12 13:51 | Outpatient (REF) | payer OTHER, SELFPAY ==
[2025-04-12 19:24] LABS: Resp Syncy Virus RNA Qual PCR NEGATIVE (Negative); SARS COV2 PCR INHOUSE NEGATIVE (Negative)
== END 2025-04-12 13:52 | disposition home or self-care (01) ==
LOC: HO.LNP 13:51
PROVIDERS: Visit Provider Physician Assistant
DX: J20.9 Acute bronchitis, unspecified (principal); Z13.31 Encounter for screening for depression; Z13.39 Encounter for screening examination for other mental health and behavioral disorders
CPT/HCPCS: 87637; 96127

== ENCOUNTER 2025-04-12 13:51 | Outpatient (AMB) | payer OTHER, SELFPAY ==
[2025-04-12 14:06] VITALS: BP 136/90; PULSE 85; O2SAT 95; BMI 35.3
--- NOTE | 2025-04-12 14:06 | MHC.PC.OV ---
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 Resistance Required: No Accompanied by: Self / Same As Patient Allergies No Known Allergies Allergy (Verified 04/12/25 14:18) Medication List - Last Reconciled 04/12/25 by Mariano Leigh PA-C albuterol sulfate 90 mcg/actuation (Ventolin HFA) 2 puffs inhalation Q4-6H PRN amlodipine 5 mg PO DAILY aspirin (Adult Aspirin Regimen) 81 mg PO DAILY atorvastatin (Lipitor) 10 mg PO BEDTIME hydrochlorothiazide 25 mg PO DAILY hydroxyzine HCl 25 mg PO BID PRN loratadine (Claritin) 10 mg PO DAILY Tobacco use date assessed: 04/12/25 Dental Screening Dental Screen Date: 04/12/25 Did you have a dental visit in the last 12 months?: Yes Did you have a dental problem in the last 6 months where you did not have access to dental care?: No Was dental information given to patient?: Patient has dentist HPI Flu, congestion, back pain HPI Details The patient is a 54 year old male presenting after not feeling well for a couple of weeks. He reports initial symptoms of cold sores on his upper lip and scabs inside his nose. Approximately one week ago, he developed flu-like symptoms including body aches, sore throat, cough, chest soreness from coughing, headache, and sinus congestion. He has a history of asthma and COPD, which has made breathing somewhat challenging during this illness. He has tried uwdg-zhm-oujffct remedies including NyQuil, ibuprofen, Mucinex, and [place] Cold and Sinus without improvement. He has a history of multiple prior COVID infections but believes the current symptoms are different. Separately, the patient reports a recent onset of significant polyuria, stating he is urinating every hour, including frequent nocturia that disrupts his sleep. He denies experiencing excessive thirst but acknowledges a high fluid intake of coffee and flavored iced tea. His last blood sugar check was in October and was reportedly normal. His social history is negative for smoking, alcohol use, and illicit drug use. He is not aware of any allergies to antibiotics. [facility] Medical History (Updated 04/13/25 @ 08:04 by Mariano Leigh PA-C) Urine frequency Heartburn HTN (hypertension) Asthma COPD (chronic obstructive pulmonary disease) No pertinent past medical history Surgical History H/O wisdom tooth extraction Family History Father Diabetes Hypertension Myocardial infarction Pacemaker Afib Maternal Grandmother Leaky heart valve Maternal Grandfather Myocardial infarction Social History Household Members: Spouse and Family Housing: House Alcohol intake: current Alcohol intake frequency: does not drink Patient Tobacco Use Status: Former Tobacco user e-Cigarette/Vaping Use: Never Used service: No Current occupational status: employed 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 1. Little interest or pleasure in doing things: not at all 2. Feeling down, depressed, or hopeless: several days 3. Trouble falling or staying asleep, or sleeping too much: several days 4. Feeling tired or having little energy: several days 5. Poor appetite or overeating: several days 6. Feeling bad about yourself - or that you are a failure or have let yourself or your family down: not at all 7. Trouble concentrating on things, such as reading the newspaper or watching television: several days 8. Moving or speaking so slowly that other people could have noticed. Or the opposite - being so fidgety or restless that you have been moving around a lot more than usual: not at all 9. Thoughts that you would be better off or of hurting yourself in some way: not at all Total score: 5 Depression Screening Interpretation: Negative Depression Screening Done: Yes Source: Developed by Drs. Mustapha Carlson, Susie Zhu, Gustavo Ace and colleagues, with an educational felipe from [employer]. Thrive Questionnaire Date Thrive assessed: 04/12/25 I am a: Patient What is your living situation today?: I have a steady place to live Within the past 12 months, did the food you bought not last and you didn't have the money to get more?: Never true Within the past 12 months, did you worry whether your food would run out before you got money to buy more?: Never true Do you have trouble paying for medicines?: No Do you have trouble getting transportation to medical appointments?: No Do you have trouble paying your heating and electricity bill?: No Do you have trouble taking care of your child, family member or friend?: No Do you have trouble with day-to-day activities such as bathing, preparing meals, shopping, managing finances, etc.?: No Are you currently unemployed and looking for a job?: No Are you interested in more education?: Yes Please select the resources that you would like help with: Education Currently or been in a relationship where the following occur: Controlled Emotionally THRIVE Score: 1 AUDIT C Alcohol Use Questionnaire (AUDIT-C) 1. How often do you have a drink containing alcohol?: Never 3. How often do you have six or more drinks on one occasion?: Never Total Score: 0 TANYA-7 AMB Questionnaire TANYA-7 Date TANYA - 7 assessed: 04/12/25 Feeling nervous, anxious, or on edge: 1 = Several days Not being able to stop or control worryin = Several days Worrying too much about different things: 1 = Several days Trouble relaxin = More than half the days Being so restless that it is hard to sit still: 2 = More than half the days Becoming easily annoyed or irritable: 0 = Not at all Feeling afraid as if something awful might happen: 1 = Several days Total TANYA-7 score (0-4 normal; 5-9 mild; 10-14 moderate; 15-21 severe): 8 Source: Developed by Drs. Mustapha Carlson, Susie Zhu, Gustavo Ace and colleagues, with an educational felipe from [employer]. Review of Systems Const Reports headache(s) Eyes Denies loss of vision ENT Denies vertigo, Denies dizziness, Reports headache(s), Reports post nasal drip, Reports sinus pain and Reports sore throat Card Denies chest pain, Denies leg edema and Denies lightheadedness Resp Reports cough, Denies hemoptysis and Denies wheezing GI Denies abdominal pain, Denies melena, Denies constipation, Denies diarrhea and Denies vomiting Denies dysuria, Denies urinary frequency and Denies urinary urgency Musc Denies arthralgias, Denies joint swelling, Denies numbness and Denies tingling Neuro Denies Abnormal speech present, Denies behavioral changes, Denies vertigo, Denies dizziness, Reports headache(s), Denies loss of vision, Denies memory loss, Denies numbness and Denies tingling Psych Denies anxiety, Denies behavioral changes, Denies depression, Denies memory loss and Denies panic attacks Henrique/Lymph Denies easy bleeding and Denies easy bruising Aller/Immun Denies wheezing Physical exam (Primary Care) Vital Signs: Last Vital Signs Pulse 85 04/12/25 14:06 BP 136/90 H 04/12/25 14:06 Pulse Ox 95 04/12/25 14:06 Oxygen Delivery Method Room Air 04/12/25 14:06 BMI result Body Mass Index 35.3 Tobacco/Smoking Status: Tobacco use Status Tobacco use date assessed 04/12/25 04/12/25 14:12 Patient Tobacco Use Status Former Tobacco user 04/12/25 14:12 e-Cigarette/Vaping Use Never Used 04/12/25 14:12 PHQ-9: PHQ-9 Score PHQ-9: Total score 5 04/12/25 14:23 Depression Screening Interpretation: Negative Thrive Assessment: Date of Thrive Assessment Date Thrive assessed 04/12/25 04/12/25 14:12 Currently or been in a relationship where the following occur: Controlled Emotionally Const General: healthy appearing, no acute distress, alert and awake Nutritional Appearance: well nourished Orientation/consciousness: oriented to person, oriented to place and oriented to time HENRI Ears: TM's normal bilaterally General nose exam: Normal nasal mucous membranes and turbinates present Eyes Conjunctivae: conjunctivae normal Sclerae: sclerae normal Pupils: Equal, round and reactive pupils present Neck Neck: Yes no lymphadenopathy and Yes no JVD Thyroid: Thyroid normal Carotids: no bruits Resp Effort & Inspection: normal respiratory effort and not tachypneic Auscultation: no crackles, no rales, no rhonchi and no wheezes Cardio Rate: regular rate Rhythm: regular rhythm Heart sounds: no murmurs and normal S1 and S2 GI Palpation (GI): Soft to palpation, nontender, no hepatomegaly and no splenomegaly Auscultation: normal bowel sounds Skin General skin exam: no rashes or lesions noted and dry skin Neuro General: oriented to person, oriented to place and oriented to time Cranial nerves: Yes Equal, round and reactive pupils present Speech: No Abnormal speech present Gait exam (Neuro): Normal gait present Motor exam (neuro): no tremor noted Extrem Right upper extremity: full ROM Left upper extremity: full ROM Right lower extremity: full ROM; no edema Left lower extremity: full ROM; no edema Psych Mental Status: mental status grossly normal Speech and movement: Normal speech and movement present Affect: normal affect Attitude: cooperative Thought process: Normal thought process present Coding Level of Care Code Est Pt Level 4 (68173) Diagnoses Subacute frontal sinusitis J01.10 Chronicity: subacute Sinusitis location: frontal Acute bronchitis, unspecified organism J20.9 Bronchitis organism: unspecified organism Urine frequency R35.0 Assessment & Plan Assessment & Plan (1) Sinus infection: Code(s): J32.9 - Chronic sinusitis, unspecified Category: Medical Qualifiers: Chronicity: subacute Sinusitis location: frontal Qualified Code(s): J01.10 - Acute frontal sinusitis, unspecified Plan: To further evaluate the patient's symptoms, a nasal swab will be sent for a Flu, RSV, and COVID-19 panel. A chest x-ray will also be obtained to rule out an underlying pneumonia, given the duration of symptoms and history of COPD. Additionally, a urinalysis will be performed to investigate the new onset of polyuria. (2) Acute bronchitis: Code(s): J20.9 - Acute bronchitis, unspecified Category: Medical Qualifiers: Bronchitis organism: unspecified organism Qualified Code(s): J20.9 - Acute bronchitis, unspecified Plan: For treatment, a prescription for amoxicillin will be provided to address a potential bacterial component, such as a sinus infection. A short, 6-day course of low-dose prednisone was also prescribed to help reduce inflammation in the sinuses and lungs, which may also help with his COPD exacerbation. The patient will continue symptomatic management with jhfc-gzi-nxwjwyl medications like Mucinex and [place], as well as his rescue inhaler as needed for breathing difficulties. (3) Urine frequency: Code(s): R35.0 - Frequency of micturition Category: Medical Plan: Will get a urinalysis to eval for any UTI more glucose in the urine. Orders: Orders SARS-CoV2/FLU/RSV 04/12/25 J20.9 - Acute bronchitis, unspecified XR chest 2V 04/12/25 J20.9 - Acute bronchitis, unspecified UA CC w/rflx Micro + Cult 04/12/25 R30.0 - Dysuria, R35.0 - Frequency of micturition Medications: New amoxicillin-pot clavulanate 875-125 mg 1 tab PO BID 14 tabs 0RF 7 days J20.9 - Acute bronchitis, unspecified prednisone Take 3 tablets x2 days, 2 tablets x2 days, 1 tablet x2 days 5 mg PO DAILY 12 tabs 0RF 6 days J20.9 - Acute bronchitis, unspecified
--- OUTSIDE RECORDS SUMMARY | 2025-04-12 17:18 | XMS_ITS | Clinical Summary ---
Author Organization [facility] Address [address] [place] [address] Care Team Providers Care Hand Baseball Sewer Name Role Phone Malia Triana PA-C Primary [...] PM EDT): Was seeing pulmonary out of [facility]. He has an albuterol inhaler that he takes as needed. He feels his breathing is controlled. History of tobacco use 12/25/2024 Assessment & Plan (12/25/2024 12:16 PM EDT): Overdue for low-dose CAT scan screening. Orders placed. Patient has been going to [email or web address] in [place]. Orders: CT Chest Low Dose Cancer Annual Screening; Future Hyperlipidemia 12/25/2024 Assessment & Plan (12/25/2024 12:16 PM EDT): Compliant with Lipitor. Will check fasting lipid profile. Social History Tobacco Use Types Packs/Day Years Used Date Smoking Tobacco: Former Cigarettes 0 Q uit: 2009 Smokeless Tobacco: Former Tobacco Cessation:Counseling Given: Not [...] and Family Not on file 12/25/2024 Attends Jew Services Not on file 12/25 Active Member [...] any time in the past 12 m [facility], were you homeless or living in a correction (including now)? No 12/25/2024 Education Answer Date [...] Description 04/28/2025 8:45 AM EST Office Visit [address] [phone] Malia Triana PA-C [address] [place] [address] Health Maintenance Due Date Last Done Comments [...] 2) 2020 Influenza Vaccine 11/20/2024 COVID-19 Vaccine (1 - season) 2024 Procedures Procedure Name Priority [...] DOC Blood specimen / Unknown 01/14/2025 us Maliaisreal LIZC LAB BLOOD ORDERABLE S Final Result Performing Organization Address [facility] de Phone Number [facility] * PSA (01/14/2025) Blood specimen / Unknown 01/14/2025 Narrative [facility] - 01/15/2025 12:15 PM EDT SCANNED us Malia Greersamuel HONG-C LAB BLOOD ORDERABLE S Final Result Performing Organization Address City/State/[facility] Co de Phone Number [facility] * Lipid panel with nonHDL (01/14/2025) Blood specimen / Unknown 01/14/2025 Narrative [facility] - 01/15/2025 12:15 PM EDT SCANNED us Malia LIZC LAB BLOOD ORDERABLE S Final Result Performing Organization Address City/[facility] de Phone Number [facility] * Complete Blood Count, with Differential (01/14/2025) Blood specimen / Unknown 01/14/2025 Narrative [facility] - 01/15/2025 12:15 PM EDT SCANNED us Malia Triana PA-C LAB BLOOD ORDERABLE S Final Result Performing Organization Address [facility] de Phone Number [facility] * Urinalysis with Microscopic (01/14/2025) Urine Urine specimen / Unknown 01/14/2025 us Malia HONG-C URINE ORDERABLES Fi nal Result Performing Organization Address City/[facility] Co de Phone Number [facility] * Comprehensive Metabolic Panel (01/14/2025) Blood specimen / Unknown 01/14/2025 Narrative [facility] - 01/15/2025 12:15 PM EDT SCANNED us Malia Triana PA-C LAB BLOOD ORDERABLE S Final Result [facility] from Last 3 Months Insurance [facility] PPO Care Teams Hand Baseball Sewer Relationship Specialty Start Date End Date Malia Triana PA-C [address] [place] [address] PCP - General Internal Medicine 12/25/24
--- OUTSIDE RECORDS SUMMARY | 2025-04-12 17:18 | XMS_ITS | Clinical Summary ---
Author Organization [facility] Prior to 09/19/[address] [place] [address] Care Team Providers Care Hand Alterations Tailor Name Role Phone Unavailable Primary Care Provider [...]
--- OUTSIDE RECORDS SUMMARY | 2025-04-12 17:18 | XMS_ITS | Clinical Summary ---
Author Organization [facility] Address [address] [place] [address] Phone Care Team Providers Care Tin Whiz Machine Operator Name Role Phone LagosRajiv Silva LOCKE Primary Care Provider Medical History Medical History Date Comments Esophageal [...] on file Sexual Orientation Not on file Plan of Treatment Health [...] Depression Screening 04/22/2024 COVID-19 Vaccine (1 - 2024-2 6 season) 2024 Influenza Vaccine (#1) 2024 06/15/2019 RSV Immunization Adult Patie nts (1 - 1-dose 75+ series) 2045 HIB Vaccines Aged Out No longer eligi [...] patient's age to complete this topic Insurance [place] [employer] [facility] Care Teams Tin Whiz Machine Operator Relationship Specialty Start Date End Date Rajiv Lagos FNP [address] [place] [id number] PCP - General Family Medicine 01/04/25
== END 2025-04-12 14:38 | disposition home or self-care (01) ==
LOC: HO.HMCH 13:52
PROVIDERS: Visit Provider Physician Assistant
DX: J01.10 Acute frontal sinusitis, unspecified (principal); J20.9 Acute bronchitis, unspecified; R35.0 Frequency of micturition

== ENCOUNTER 2025-04-13 15:27 | Outpatient (REF) | payer OTHER, SELFPAY ==
--- NOTE | ~2025-04-13 | XR_ITS ---
EXAMINATION: XR CHEST CLINICAL INFORMATION: J20.9 - Acute bronchitis, unspecified COMPARISON: CT chest 01/20/2024 TECHNIQUE: 2 views of the chest were obtained. FINDINGS: No significant abnormality is noted involving the heart, lungs, mediastinum, bony thorax or soft tissues. XR/XR chest 2V IMPRESSION: No acute disease. Electronically signed by: Wesley Rowell MD 04/13/2025 04:01 PM AXEL
[2025-04-13 16:00] LABS: Appearance Urine Clear; Glucose Urine UA Negative (Negative); PH 6.0 (5.0-9.0); Specific Gravity - Urine 1.020 (1.005-1.025)
--- OUTSIDE RECORDS SUMMARY | 2025-04-13 16:36 | XMS_ITS | Clinical Summary ---
Author Organization [facility] Prior to 09/19/[address] [place] [address] Care Team Providers Care Roof Tile Layer Name Role Phone Unavailable Primary Care Provider [...]
--- OUTSIDE RECORDS SUMMARY | 2025-04-13 16:36 | XMS_ITS | Clinical Summary ---
Author Organization [facility] Address [address] [place] [address] Phone Care Team Providers Care Cardiovascular Specialist Name Role Phone LagosRajiv Silva LOCKE Primary [...] patient's age to complete this topic Insurance [employer] [facility] Care Teams Cardiovascular Specialist Relationship Specialty Start Date End Date Rajiv Lagos FNP [address] [place] [phone] PCP - General Family Medicine 01/04/25
--- OUTSIDE RECORDS SUMMARY | 2025-04-13 16:36 | XMS_ITS | Clinical Summary ---
Author Organization [facility] Address [address] [place] [address] Care Team Providers Care Property Supervisor Name Role Phone Malia Triana PA-C Primary [...] PM EDT): Was seeing pulmonary out of [facility]. He has an albuterol inhaler that he takes as needed. He feels his breathing is controlled. History of tobacco use 12/25/2024 Assessment & Plan (12/25/2024 12:16 PM EDT): Overdue for low-dose CAT scan screening. Orders placed. Patient has been going to [email or web address] in [place]. Orders: CT Chest Low Dose Cancer Annual [...] and Family Not on file 12/25/2024 Attends Voodoo Services Not on file 12/25 Active Member [...] any time in the past [address] [facility], were you homeless or living in a long-term (including now)? No 12/25/2024 Education Answer Date [...] Description 04/28/2025 8:45 AM EST Office Visit [address] [phone] Malia Triana PA-C [address] [place] [address] Health Maintenance Due Date Last Done Comments [...] ORDERABLE S Final Result Performing Organization Address [facility] de Phone Number [facility] * PSA (01/14/2025) Blood specimen / Unknown 01/14/2025 Narrative [facility] - 01/15/2025 12:15 PM EDT SCANNED us Malia Greersamuel HONG-C LAB BLOOD ORDERABLE S Final Result Performing Organization Address City/State/[facility] Co de Phone Number [facility] * Lipid panel with nonHDL (01/14/2025) Blood specimen / Unknown 01/14/2025 Narrative [facility] - 01/15/2025 12:15 PM EDT SCANNED us Malia LIZC LAB BLOOD ORDERABLE S Final Result Performing Organization Address City/[facility] de Phone Number [facility] * Complete Blood Count, with Differential (01/14/2025) Blood specimen / Unknown 01/14/2025 Narrative [facility] - 01/15/2025 12:15 PM EDT SCANNED us Malia Triana PA-C LAB BLOOD ORDERABLE S Final Result Performing Organization Address [facility] de Phone Number [facility] * Urinalysis with Microscopic (01/14/2025) Urine Urine specimen / Unknown 01/14/2025 us Malia HONG-C URINE ORDERABLES Fi nal Result Performing Organization Address City/[facility] Co de Phone Number [facility] * Comprehensive Metabolic Panel (01/14/2025) Blood specimen / Unknown 01/14/2025 Narrative [facility] - 01/15/2025 12:15 PM EDT SCANNED us Malia Triana PA-C LAB BLOOD ORDERABLE S Final Result [facility] from Last 3 Months Insurance [facility] PPO Care Teams Property Supervisor Relationship Specialty Start Date End Date Malia Triana PA-C [address] [place] [address] PCP - General Internal Medicine 12/25/24
[2025-04-13 16:56] LABS: Alanine Aminotransferase 52 U/L (0-40); Albumin Level 4.8 g/dL (3.5-5.0); Alkaline Phosphatase 115 U/L (39-117); Anion Gap 12 (12-20); Aspartate Amino Transferase 30 U/L (5-37); Blood Urea Nitrogen 10 mg/dL (9-16); Calcium 9.7 mg/dL (8.4-10.2); Carbon Dioxide 30 mmol/L (22-29); Chloride 103 mmol/L (96-108); Cholesterol 179 mg/dL (<200); Estimated Glomerular Filt Rate > 60; HDL Cholesterol 39 mg/dL (>40); Potassium 4.0 mmol/L (3.3-5.1); Sodium 141 mmol/L (135-145); Total Protein 7.8 g/dL (6.5-8.0); Triglycerides 129 mg/dL (<150)
== END 2025-04-13 15:28 | disposition home or self-care (01) ==
LOC: HO.XRAY 15:27
PROVIDERS: PCP Physician Assistant; Visit Provider Physician Assistant
DX: J44.89 Other specified chronic obstructive pulmonary disease (principal); I10 Essential (primary) hypertension; J20.9 Acute bronchitis, unspecified; E78.5 Hyperlipidemia, unspecified; E55.9 Vitamin D deficiency, unspecified; F41.9 Anxiety disorder, unspecified; R30.0 Dysuria; R35.0 Frequency of micturition
CPT/HCPCS: 36415; 71046; 80053; 80061; 81003; 82306; 84443

== ENCOUNTER → 2025-04-13 15:39 | Outpatient (BNV) | payer OTHER, SELFPAY | PROVIDERS: PCP Physician Assistant; Visit Provider Radiology Diagnostic Radiology | DX: J20.9 Acute bronchitis, unspecified (principal) | CPT/HCPCS: 71046 ==